=== PATIENT | female | born 1975 | race Caucasian/White ===

== ENCOUNTER 2023-03-01 03:06 | Inpatient (IN) | payer BC ==
--- NOTE | 2023-03-01 03:30 | ED Physician Documentation ---
History of Present Illness - Stated complaint Stated Complaint: FEVER/GEN WEAKNESS - Chief complaint Chief Complaint: Resp - History obtained from History obtained from: Patient - Additonal information Additional information: HPI from patient. Patient complains of symptoms that began 8 days ago with episodic cramping pain in all 4 extremities. She is not sure if these cramping pains are related to the subsequent symptoms. Approximately 3 to 4 days ago, she then developed chest congestion, increasing shortness of breath, increasing cough that is productive of discolored sputum, and generalized weakness. She says she has been having fevers to a Tmax of 103.7; she says she has had measured fever for the past week. Her last dose of antipyretic was at approximately 1 AM this morning. She denies any medical history, although she also acknowledges that she has not seen a doctor in several years. She does not use oxygen at home and has no history of similar symptoms to those that led to her presenting to the emergency department tonight. Denies nausea/vomiting. She has had mild diarrhea. She has had a COVID vaccination with a single booster. Denies recent airplane travel, denies long car trips. Review of Systems Constitutional: reports: Fever, Chills, Myalgias, Fatigue, Sweats Cardiac: denies: Chest pain / pressure, Palpitations, Pedal edema, Calf pain Respiratory: reports: Dyspnea, Cough. denies: Hemoptysis, Wheezing GI: reports: Diarrhea (Mild). denies: Abdominal Pain, Nausea, Vomiting : denies: Dysuria, Frequency Skin: reports: Reviewed and negative Musculoskeletal: reports: Reviewed and negative Neurologic: reports: Generalized weakness. denies: Focal weakness, Numbness PD PAST MEDICAL HISTORY - Past Medical History Past Medical History: No - Present Medications Home Medications: Ambulatory Orders Medication Instructions Recorded Confirmed Amberen 2 tab PO DAILY 03/01/23 Diphenhyd/Phenyleph/Acetaminop 20 ml PO HS 03/01/23 03/01/23 [Robitussin Cold-Flu Night Liq] Dm/Acetaminophen/Doxylamine [Vicks 30 ml PO Q4HR PRN 03/01/23 03/01/23 Nyquil Cold-Flu Liquid] Guaifenesin/Dextromethorphan 1 tab PO BID 03/01/23 03/01/23 [Mucinex Dm ER 600-30 mg Tablet] Guaifenesin/Dextromethorphan 20 ml PO DAILY PRN 03/01/23 03/01/23 [Robitussin Cough-Chest Dm Liq] Ibuprofen 4 tab PO Q6HR PRN 03/01/23 03/01/23 Loratadine [Claritin] 1 tab PO DAILY 03/01/23 03/01/23 Magnesium Glycinate, Mag Oxide 420 mg PO DAILY 03/01/23 03/01/23 [Magnesium Glycinate] Phenylephrine/Dm/Acetaminop/GG 30 ml PO BID PRN 03/01/23 03/01/23 [Daytime Severe Cold-Flu Liquid] S-Adenosylmethionine Sul Tosyl 1 tab PO DAILY 03/01/23 03/01/23 [Berry-E] Vit C/E/Zn/Coppr/Lutein/Zeaxan 1 tab PO DAILY 03/01/23 03/01/23 [Preservision Areds 2 Chew Tab] Vit D3/Vit K2/Calc Frutoborate 1 tab PO DAILY 03/01/23 03/01/23 [Move Free [id number]] - Allergies Allergies/Adverse Reactions: Allergies Allergy/AdvReac Type Severity Reaction Status Date / Time No Known Drug Allergies Allergy Verified 03/01/23 04:40 - Living Situation Living Situation: reports: With family Living Arrangement: reports: At home - Social History Does the pt smoke?: No Smoking Status: Former smoker (Quit approximately 10 years ago) PD ED PE NORMAL - Vitals Vital signs reviewed: Yes - General General: Alert and oriented X 3, No acute distress, Well developed/nourished - HEENT HEENT: Moist mucous membranes - Neck Neck: Supple, no meningeal sign - Cardiac Cardiac: No murmur - Respiratory Respiratory: No respiratory distress - Abdomen Abdomen: Soft, Non tender - Derm Derm: Normal color, Warm and dry - Extremities Extremities: No edema - Neuro Neuro: Alert and oriented X 3 PD ED PE EXPANDED - Cardiac Cardiac: Tachy, Regular Rhythm - Respiratory Respiratory: Right upper lobe (Markedly decreased breath sounds in the right upper lobe with inspiratory crackles) Results - Vitals Vitals: Vital Signs - 24 hr 03/01/23 03/01/23 03/01/23 10:00 12:15 13:03 Temperature 37.4 C Heart Rate 122 H 136 H 131 H Respiratory 36 H 36 H 29 H Rate Blood Pressure 112/54 L 129/62 O2 Saturation 93 92 If not protocol 2 2 : Oxygen Flow, liters/minute 03/01/23 03/01/23 03/01/23 14:00 15:31 15:35 Temperature 38.6 C H Heart Rate 135 H 137 H Respiratory 40 H 37 H Rate Blood Pressure 129/69 O2 Saturation 91 L If not protocol : Oxygen Flow, liters/minute Oxygen O2 Source Room air Oxygen Flow Rate 4 - Labs Labs: Microbiology 03/01/23 05:28 Blood Culture - Preliminary Blood - Right Hand NO GROWTH AFTER 1 DAY 03/01/23 05:21 Blood Culture - Preliminary Blood - Right Arm NO GROWTH AFTER 1 DAY Laboratory Tests 03/01/23 03/01/23 03/01/23 03:57 03:57 03:57 WBC 13.2 H RBC 3.59 L Hgb 9.9 L Hct 29.6 L MCV 82.5 MCH 27.6 MCHC 33.4 RDW 15.2 H Plt Count 235 MPV 10.2 Neut # (Auto) Not Reportable Lymph # (Auto) Not Reportable [place] # (Auto) Not Reportable Eos # (Auto) Not Reportable Baso # (Auto) Not Reportable Absolute Nucleated RBC Not Reportable Total Counted 100 Band Neuts % (Manual) 4 Abnorm Lymph % (Manual) 0 Metamyelocytes % 1 H Nucleated RBC % Not Reportable Neutrophils # (Manual) 11.6 H Lymphocytes # (Manual) 0.8 L Monocytes # (Manual) 0.7 Eosinophils # (Manual) 0.0 Basophils # (Manual) 0.0 Differential Comment MANUAL DIFFERENTIAL WBC Morphology NORMAL APPEARANCE Platelet Estimate NORMAL (130-450,000) Platelet Morphology NORMAL APPEARANCE RBC Morph Micro Appear NORMAL APPEARANCE Sodium 136 Potassium 3.4 L Chloride 105 Carbon Dioxide 19 L Anion Gap 12.0 BUN 16 Creatinine 1.0 Estimated GFR (MDRD) 59 L Glucose 126 H Lactic Acid Calcium 8.4 L Total Bilirubin 0.7 AST 33 ALT 26 Alkaline Phosphatase 108 Total Protein 7.4 Albumin 2.5 L Globulin 4.8 H Albumin/Globulin Ratio 0.5 L Lipase 22 Nasal Adenovirus (PCR) NOT DETECTED Nasal B. parapertussis DNA (PCR) NOT DETECTED Nasal Coronavir 229E PCR NOT DETECTED Nasal Coronavir HKU1 PCR NOT DETECTED Nasal Coronavir NL63 PCR NOT DETECTED Nasal Coronavir OC43 PCR NOT DETECTED Nasal Enterovir/Rhinovir PCR NOT DETECTED Nasal Influenza B PCR NOT DETECTED Nasal Influenza A PCR NOT DETECTED Nasal Parainfluen 1 PCR NOT DETECTED Nasal Parainfluen 2 PCR NOT DETECTED Nasal Parainfluen 3 PCR NOT DETECTED Nasal Parainfluen 4 PCR NOT DETECTED Nasal RSV (PCR) NOT DETECTED Nasal B.pertussis DNA PCR NOT DETECTED Nasal C.pneumoniae (PCR) NOT DETECTED Jose Human Metapneumo PCR NOT DETECTED Nasal M.pneumoniae (PCR) NOT DETECTED Nasal SARS-CoV-2 (PCR) NOT DETECTED 03/01/23 04:10 WBC RBC Hgb Hct MCV MCH MCHC RDW Plt Count MPV Neut # (Auto) Lymph # (Auto) [place] # (Auto) Eos # (Auto) Baso # (Auto) Absolute Nucleated RBC Total Counted Band Neuts % (Manual) Abnorm Lymph % (Manual) Metamyelocytes % Nucleated RBC % Neutrophils # (Manual) Lymphocytes # (Manual) Monocytes # (Manual) Eosinophils # (Manual) Basophils # (Manual) Differential Comment WBC Morphology Platelet Estimate Platelet Morphology RBC Morph Micro Appear Sodium Potassium Chloride Carbon Dioxide Anion Gap BUN Creatinine Estimated GFR (MDRD) Glucose Lactic Acid 0.8 Calcium Total Bilirubin AST ALT Alkaline Phosphatase Total Protein Albumin Globulin Albumin/Globulin Ratio Lipase Nasal Adenovirus (PCR) Nasal B. parapertussis DNA (PCR) Nasal Coronavir 229E PCR Nasal Coronavir HKU1 PCR Nasal Coronavir NL63 PCR Nasal Coronavir OC43 PCR Nasal Enterovir/Rhinovir PCR Nasal Influenza B PCR Nasal Influenza A PCR Nasal Parainfluen 1 PCR Nasal Parainfluen 2 PCR Nasal Parainfluen 3 PCR Nasal Parainfluen 4 PCR Nasal RSV (PCR) Nasal B.pertussis DNA PCR Nasal C.pneumoniae (PCR) Jose Human Metapneumo PCR Nasal M.pneumoniae (PCR) Nasal SARS-CoV-2 (PCR) - Rads (name of study) chest xray Relevant Findings:: Prelim report reviewed, EMP independent interpretation of test, See rad report PD Medical Decision Making - ED course Complexity details: reviewed results, re-evaluated patient, considered differential, d/w patient ED course: Although afebrile in the emergency department, she also had just taken an antipyretic approximately 2 hours prior to arrival. Chest x-ray demonstrates bilateral infiltrates, markedly more pronounced on the right side which correlates with the lung exam (auscultation). On the blood test, mild leukocytosis is noted as well as mildly low hemoglobin. Her lactate level is normal, and the respiratory PCR panel is negative for the viruses tested, including COVID and influenza. Patient has no pulmonary diagnoses nor does she use oxygen at home. Her pulse ox was 91% on arrival (in triage) on room air, although the ED RN did note she had dropped to 87 to 88% on room air when she was first put into the room in the ED. Her pulse ox maintained at an acceptable level with 2 L/minute NC oxygen (mostly 92 to 93%). After the chest x-ray and blood tests were resulted, the supplemental oxygen was discontinued, and her pulse ox dropped to 90% with a good pleth. She did report increasing shortness of breath without the oxygen on. ED RN then ambulated patient in the ED hallway, using a mobile pulse oximeter during this ambulation, and noted the pulse ox would drop to the range of 86 to 88% with patient reporting increasing dyspnea. As she was being brought back into the room, I also came into the room and noted a good, correlating pleth on the monitor with a pulse ox of 82%. Patient was obviously tachypneic at that point. ED RN restarted the oxygen at 2 L/min, which again improved her pulse ox to 92 to 93%, again associated with improvement in dyspnea (both visibly as well as by patient report). Patient is tachycardic for much of her ED stay, with tachycardia notably inversely proportionate to the pulse ox readings. At this point, 2 sets of blood cultures are obtained after which she is given 2 g of intravenous Rocephin and 500 mg of intravenous Zithromax for pneumonia. The plan is to admit the patient to [facility] once beds are available (at the time of this dictation, there are no beds available but anticipate bed availability later this morning). Departure - Departure Disposition: [facility] DC/Xfer Clinical Impression: Hypoxia Pneumonia Qualifiers: Pneumonia type: due to unspecified organism Laterality: bilateral Lung location: unspecified part of lung Qualified Code(s): J18.9 - Pneumonia, unspecified organism Condition: Stable Discharge Date/Time: 03/01/23 16:48
[2023-03-01 04:08] LABS: BASOPHILS % (AUTO) 0.2 %; EOSINOPHILS % (AUTO) 0.3 %; HCT - HEMATOCRIT 29.6 % (37.0-47.0); HGB - HEMOGLOBIN 9.9 g/dL (12.0-16.0); MEAN CORPUSCULAR HEMOGLOBIN 27.6 pg (27.0-31.0); MEAN CORPUSCULAR HGB CONC 33.4 g/dL (32.0-36.0); MEAN CORPUSCULAR VOLUME 82.5 fL (81.0-99.0); MEAN PLATELET VOLUME 10.2 fL (7.9-10.8); MONOCYTES % (AUTO) 2.8 %; NEUTROPHILS % (AUTO) 86.5 %; PLT - PLATELET COUNT 235 10^3/uL (130-450); RED BLOOD COUNT 3.59 10^6/uL (4.20-5.40); RED CELL DISTRIBUTION WIDTH 15.2 % (12.0-15.0); WHITE BLOOD COUNT 13.2 x10^3/uL (4.8-10.8)
[2023-03-01 04:13] LABS: ABNORMAL LYMPHS % (MANUAL) 0 %
[2023-03-01 04:21] LABS: ALBUMIN 2.5 g/dL (3.2-5.5); ALBUMIN/GLOBULIN RATIO 0.5 (1.0-2.2); BILIRUBIN,TOTAL 0.7 mg/dL (0.2-1.0); CALCIUM 8.4 mg/dL (8.5-10.3); POTASSIUM 3.4 mmol/L (3.5-5.0); TOTAL PROTEIN 7.4 g/dL (6.7-8.2)
[2023-03-01 04:25] LABS: BAND NEUTROPHILS % (MANUAL) 4 %; DIFFERENTIAL COMMENT MANUAL DIFFERENTIAL; LYMPHOCYTES # (MANUAL) 0.8 10^3/uL (1.5-3.5); LYMPHOCYTES % (MANUAL) 6 %; METAMYELOCYTES % (MANUAL) 1 %; MONOCYTES # (MANUAL) 0.7 10^3/uL (0.0-1.0); NEUTROPHILS # (MANUAL) 11.6 10^3/uL (1.5-6.6); PLATELET ESTIMATE, MANUAL NORMAL (130-450,000) (NORMAL); PLATELET MORPHOLOGY NORMAL APPEARANCE (NORMAL); RBC MORPHOLOGY (MULTIPLE) NORMAL APPEARANCE (NORMAL); WBC MORPHOLOGY (MULTIPLE) NORMAL APPEARANCE (NORMAL)
[2023-03-01] MEDS ORDERED: cefTRIAXone 2 GM VIAL IVP STA (04:57)
[2023-03-01] MEDS ORDERED: AZITHROMYCIN INJ 500 MG in SODIUM CHLORIDE 0.9% 250 ML IV STA (04:58)
[2023-03-01 05:04] LABS: B. PARAPERTUSSIS- RESP PCR PAN NOT DETECTED; B. PERTUSSIS- RESP PCR PANEL NOT DETECTED; C. PNEUMONIAE- RESP PCR PANEL NOT DETECTED; CORONAVIRUS 229E-RESP PCR NOT DETECTED; CORONAVIRUS HKU1-RESP PCR NOT DETECTED; CORONAVIRUS NL63-RESP PCR NOT DETECTED; CORONAVIRUS OC43-RESP PCR NOT DETECTED; HUMAN METAPNEUMOVIRUS NOT DETECTED; INFLUENZA A- RESP PCR PANEL NOT DETECTED; INFLUENZA B - RESP PCR PANEL NOT DETECTED; M. PNEUMONIAE- RESP PCR PANEL NOT DETECTED; PARAINFLUENZA VIRUS 1 NOT DETECTED; PARAINFLUENZA VIRUS 2 NOT DETECTED; PARAINFLUENZA VIRUS 3 NOT DETECTED; PARAINFLUENZA VIRUS 4 NOT DETECTED; RHINOVIRUS/ENTEROVIRUS NOT DETECTED; RSV- RESP PCR PANEL NOT DETECTED; SARS-CoV-2 -RESP PCR PANEL NOT DETECTED
--- NOTE | 2023-03-01 07:54 | XRAY Report ---
PROCEDURE: Chest 2 View X-Ray INDICATIONS: dyspnea, cough, fever, abnormal breath sounds TECHNIQUE: 2 views of the chest were acquired. COMPARISON: None. FINDINGS: Surgical changes and devices: None. Lungs and pleura: Bilateral airspace infiltrates consistent with pneumonia. No pleural effusions or p neumothorax. Mediastinum: Mediastinal contours appear normal. Heart size is normal. Bones and chest wall: No suspicious bony lesions. Overlying soft tissues appear unremarkable. IMPRESSION: Bilateral pneumonia. Reviewed by: Cheyenne Luna MD on 03/01/2023 7:52 AM PDT Approved by: Cheyenne Luna MD on 03/01/2023 7:52 AM PDT Station ID: [id number]
[2023-03-01] MEDS ORDERED: ALBUTEROL NEB 2.5 MG/3 ML INH STA (12:38)
[2023-03-01] MEDS ORDERED: SODIUM CHLORIDE 0.9% 500 ML IV STA (12:38)
--- NOTE | 2023-03-01 15:10 | ED Physician Documentation ---
ED Addendum - Addendum Addendum: 03/01/23 15:08 The patient has remained stable in the ER. She did start developing some increased dyspnea. I ordered a nebulizer treatent and IV fluids. Repeat antibiotics will be ordered if taking more time for admission. There are discharges today from [facility] but had not emptied the room as yet. Awaiting clear from nursing that beds are open and then I will talk with Hospitalist.
[2023-03-01] MEDS ORDERED: ACETAMINOPHEN 500 MG TABLET PO PRN (15:11)
[2023-03-01] MEDS ORDERED: SODIUM CHLORIDE FLUSH 0.9% 10 ML SYRINGE IVP PRN (16:13)
[2023-03-01] MEDS ORDERED: ONDANSETRON 4 MG/2 ML VIAL IVP PRN (16:13)
--- NOTE | 2023-03-01 16:34 | HISTORY & PHYSICAL EXAMINATION ---
Chief Complaint - Chief Complaint Chief Complaint: Dyspnea <Archana Watts - Last Filed: 03/02/23 14:53> History of Present Illness - Admitted From Admitted From:: ED - History Obtained From Records Reviewed: ED notes History obtained from: Patient, patient's daughter, ED notes <Archana Watts - Last Filed: 03/02/23 14:53> - History of Present Illness HPI Comment/Other: Per ED provider: Patient was admitted to ED for fever and generalized weakness. She was urged to go to ED by her daughter due to her fever and cough. Her symptoms began 8 days ago with episodic cramping pain in all 4 extremities. She is not sure if these cramping pains are related to the subsequent symptoms. A da y later she became febrile. Approximately 3 to 4 days ago, she then developed chest congestion, increasing shortness of breath, increasing cough that is scantily productive of orange sputum, and generalized weakness. She says she has been having fevers to a Tmax of 103.7; she says she has had measured fever for the past week. Her last dose of antipyretic was at approximately 1 AM this morning before arriving to the ED. She denies any medical history, although she also acknowledges that she has not seen a doctor in several years. She does not use oxygen at home and has no history of similar symptoms to those that led to her presenting to the emergency department tonight. Denies nausea/vomiting. She has had mild diarrhea. She has had a COVID vaccination with a single booster. Denies recent airplane travel, denies long car trips. Chest x-ray in ED demonstrated bilateral infiltrates, markedly more pronounced on the right side. On CBC, mild leukocytosis was noted as well as mildly low hemoglobin. Her lactate level was normal, and the respiratory PCR panel was negative for the viruses tested, including COVID and influenza. Patient has no pulmonary diagnoses nor does she use oxygen at home. Her pulse ox was 91% on arrival (in triage) on room air, although the ED RN did note she had dropped to 87 to 88% on room air when she was first put into the room in the ED. Her pulse ox maintained at an acceptable level with 2 L/minute NC oxygen (mostly 92 to 93%). After the chest x-ray and blood tests were resulted, the supplemental oxygen was discontinued, and her pulse ox dropped to 90% with a good pleth. She did report increasing shortness of breath without the oxygen on. ED RN then ambulated patient in the ED hallway, using a mobile pulse oximeter during this ambulation, and noted the pulse ox would drop to the range of 86 to 88% with patient reporting increasing dyspnea. As she was being brought back into the room, she had a pulse ox of 82%. Patient was tachypneic at that point. ED RN restarted the oxygen at 2 L/min, which again improved her pulse ox to 92 to 93%, again associated with improvement in dyspnea (both visibly as well as by patient report). Patient was tachycardic for much of her ED stay, with tachycardia notably inversely proportionate to the pulse ox readings. She was given 2 g of intravenous Rocephin and 500 mg of intravenous Zithromax for pneumonia. Here she is afebrile. Her daughter, who is a nurse, is present during exam and is helping provide history. Pt reports feeling better since leaving the ED. She is glad she has a more comfortable bed here, and feels that is helping her feel better much faster. She reports having slept only 3 hours since tuesday, due to her cough. She is a former smoker of 25 years who quit 10 years ago. She denies history of asthma or any cardiopulmonary conditions. Pt is in no distress, is very pleasant, and answers accordingly. She lives at home with her family and dog. 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 (Archana Watts) History - Past Medical History Cardiovascular: reports: None Respiratory: reports: None Neuro: reports: None Endocrine/Autoimmune: reports: None GI: reports: None APPLIANCE ADJUSTER: reports: None : reports: None HEENT: reports: None Psych: reports: None Musculoskeletal: reports: None Derm: reports: None Other Past Medical History: Seasonal allergies - Family & Social History Family History: Mother: Alive and Well, Renal Disease/Failure, Father: Alive and Well, [place] Family History Comment/Other: Mother's side has hypothyroidism. Living arrangement: At home Living Situation: With family <Archana Watts - Last Filed: 03/02/23 14:53> Meds/Allgy <Archana Watts - Last Filed: 03/02/23 14:53> <Yecenia Ni - Last Filed: 03/02/23 14:57> - Home Medications Home Medications: Ambulatory Orders Medication Instructions Recorded Confirmed Amberen 2 tab PO DAILY 03/01/23 Diphenhyd/Phenyleph/Acetaminop 20 ml PO HS 03/01/23 03/01/23 [Robitussin Cold-Flu Night Liq] Dm/Acetaminophen/Doxylamine [Vicks 30 ml PO Q4HR PRN 03/01/23 03/01/23 Nyquil Cold-Flu Liquid] Guaifenesin/Dextromethorphan 1 tab PO BID 03/01/23 03/01/23 [Mucinex Dm ER 600-30 mg Tablet] Guaifenesin/Dextromethorphan 20 ml PO DAILY PRN 03/01/23 03/01/23 [Robitussin Cough-Chest Dm Liq] Ibuprofen 4 tab PO Q6HR PRN 03/01/23 03/01/23 Loratadine [Claritin] 1 tab PO DAILY 03/01/23 03/01/23 Magnesium Glycinate, Mag Oxide 420 mg PO DAILY 03/01/23 03/01/23 [Magnesium Glycinate] Phenylephrine/Dm/Acetaminop/GG 30 ml PO BID PRN 03/01/23 03/01/23 [Daytime Severe Cold-Flu Liquid] S-Adenosylmethionine Sul Tosyl 1 tab PO DAILY 03/01/23 03/01/23 [Berry-E] Vit C/E/Zn/Coppr/Lutein/Zeaxan 1 tab PO DAILY 03/01/23 03/01/23 [Preservision Areds 2 Chew Tab] Vit D3/Vit K2/Calc Frutoborate 1 tab PO DAILY 03/01/23 03/01/23 [Move Free [id number]] - Allergies Allergies/Adverse Reactions: Allergies Allergy/AdvReac Type Severity Reaction Status Date / Time No Known Drug Allergies Allergy Verified 03/01/23 04:40 Review of Systems - Constitutional Constitutional: reports: Fatigue, Fever, Weakness. denies: Chills - Ears, Nose & Throat Ears, Nose & Throat: denies: Nasal discharge, Nasal congestion, Sore throat - Respiratory Respiratory: reports: Cough, Sputum production (Very small orange colored sputum), SOB with exertion. denies: Hemoptysis - Gastrointestinal Gastrointestinal: reports: Diarrhea. denies: Abdominal pain, Constipation, Nausea, Vomiting - Genitourinary Genitourinary: denies: Dysuria, Frequency, Urgency - Integumentary Integumentary: denies: Rash - Neurological Neurological: reports: General weakness, Headache. denies: Dizziness, Abnormal gait - Psychiatric Psychiatric: denies: Depression, Anxiety - Hematologic/Lymphatic Hematologic/Lymphatic: reports: Anemia <Archana Watts - Last Filed: 03/02/23 14:53> <Archana Watts - Last Filed: 03/02/23 14:53> Prior Level of Functionality: Pt ambulates independently. 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 At home, she keeps active with her puppy and grandchildren. (MacKeeArchana) Exam - Vital Signs Reviewed Vital Signs: Yes - Physical Exam General Appearance: positive: No acute distress, Alert Eyes Bilateral: positive: Normal inspection, EOMI ENT: positive: ENT inspection nml Neck: positive: Nml inspection, No JVD, Trachea midline Respiratory: positive: Chest non-tender, No respiratory distress, Other ( Diminished breath sounds bilaterally, with inspiratory crackles on midlung [place].) Cardiovascular: positive: No murmur, No gallop, Tachycardia Peripheral Pulses: positive: 1+ Abdomen: positive: Non-tender, No organomegaly, Nml bowel sounds, No distention Back: positive: Nml inspection Skin: positive: No rash, Warm, Dry Extremities: positive: Non-tender, Full ROM, No pedal edema Neurologic/Psychiatric: positive: Oriented x3, CN's nml (2-12), Motor nml, Sensation nml, Mood/affect nml <Archana Watts - Last Filed: 03/02/23 14:53> - Vital Signs Vital Signs: Vital Signs x48h Temp Pulse Pulse Resp BP Pulse Ox O2 Flow Rate 03/02/23 13:00 36.7 C 88 18 109/62 92 4 03/02/23 11:46 79 20 4 03/02/23 08:40 37.4 C 03/02/23 07:25 37.2 C 114 H 20 119/76 90 L 4 03/02/23 07:16 113 H 19 4 Sepsis Event Note (H) - Evaluation Current Stage of Sepsis: Sepsis Possible source of Sepsis: positive: Pulmonary - Sepsis Criteria Sepsis Criteria: Recorded Temperature greater than 38.3C or Less than 36C, Recorded Heart Rate greater than 90 bpm, Respiratory: Increasing oxygen requirements, WBC count greater than 12,000 or less than 4000 <Archana Watts - Last Filed: 03/02/23 14:53> Conclusion/Plan - Problem List (1) Sepsis Conclusion/Plan: The patient has been sick for 8 days, and febrile for 7 days. She was dyspneic while in the ED, with O2 sat dropping to 82%. She had a temperature of 39.2 C, heart rate of 130, increasing oxygen requirements, and a leukocytosis of 13.2. These criteria lead us to believe the patient is septic. Her lactic acid is 0.8, normal. The sepsis is likely due to CAP. PLAN: Begin IV fluids Begin IV rocephin and IV zithromax. Begin telemetry to assess tachycardia. Monitor vitals. Daily CBC. (2) Community acquired pneumonia Conclusion/Plan: The patient presented with fever, cough, and fatigue. Chest XR reveals findings consistent with bilateral PNA. She denies sick contacts or recent travels, so pt is unsure where she could have contracted this illness. Blood cultures were collected and sent to lab by ED provider. Empiric nebulizers started as there is suspicion of an underlying lung problem. PLAN: Begin IV fluids. Begin IV rocephin and IV zithromax, adjust if necessary, depending on cultures. Begin mucinex for cough. Continue tylenol PRN for fever. Collect sputum for culture. (3) Hypoxia Conclusion/Plan: Her hypoxia is very likely due to PNA. While in the ED, her 02 saturation dropped to the range of 86 to 88% with patient reporting increasing dyspnea (see nursing note by Tal Tran on 03/01/23 04:53). As she was taken back into the room, she had a pulse ox of 82% and was tachypneic. ED RN restarted the oxygen at 2 L/min, which improved her pulse ox to 92 to 93%. On admission, her O2 was 92% on 4L oxymask. Empiric nebulizers started as there is suspicion of an underlying lung problem. PLAN: Continue supplemental oxygen. Titrate when appropriate. Goal is to be > 90% saturated. Continue duoneb treatments. (4) Anemia Conclusion/Plan: Per patient history. Her hgb is 9.9, and hct 29.6. Pt does not currently have any treatment for anemia. PLAN: Assess iron and folate levels for possible etiology. Treat accordingly. Qualifiers: Anemia type: unspecified type Qualified Code(s): D64.9 - Anemia, unspecified - Lab Results Lab results reviewed: Yes Fish Bones: 03/02/23 05:16 03/02/23 05:16 - Diagnostic Imaging Results Diagnostic Imaging Results: positive: Final report reviewed <Archana Watts - Last Filed: 03/02/23 14:53> - Lab Results Fish Bones: 03/02/23 05:16 03/02/23 05:16 <Yecenia Ni - Last Filed: 03/02/23 14:57>
--- NOTE | 2023-03-01 16:51 | PHARMACY PROGRESS NOTE ---
- Best Possible Medication History Admit Date and Time: 03/01/23 1613 Processed by: Pharmacy Medication History completed: Yes Patient Interview: Completed Secondary Source(s): Prescription bottles, Other family member (daughters helped with otc products) As the person ultimately responsible for medication therapy, providers are able to order a medication from an existing home medication list in [facility] via the "Reconcile Routine" prior to Confirmation of that medication by support representative. Such practice is discouraged except when the physician, in their clinical judgment, deems that a medical need exists for a medication without regard to previous use.
[2023-03-01] MEDS ORDERED: ALBUTEROL 1 PUFF INH SCH (17:00)
[2023-03-01] MEDS ORDERED: LACTATED RINGERS 1,000 ML IV SCH (17:00)
[2023-03-01] MEDS: SODIUM CHLORIDE FLUSH 0.9% 10 ML SYRINGE IVP SCH (17:37)
[2023-03-01] MEDS: IPRATROPIUM/ALBUTEROL 3 ML NEB INH SCH (19:02)
[2023-03-01] MEDS: guaiFENesin 600 MG TABLET PO SCH (20:51)
[2023-03-01] MEDS: ACETAMINOPHEN 325 MG TABLET PO PRN (23:34)
[2023-03-02] MEDS: SODIUM CHLORIDE FLUSH 0.9% 10 ML SYRINGE IVP SCH ×3 (00:05→16:48)
[2023-03-02 05:40] LABS: BASOPHILS # (AUTO) 0.1 10^3/uL (0.0-0.1); BASOPHILS % (AUTO) 0.7 %; EOSINOPHILS % (AUTO) 0.1 %; HCT - HEMATOCRIT 29.2 % (37.0-47.0); HGB - HEMOGLOBIN 9.7 g/dL (12.0-16.0); LYMPHOCYTES # (AUTO) 1.4 10^3/uL (1.5-3.5); LYMPHOCYTES % (AUTO) 9.5 %; MEAN CORPUSCULAR HEMOGLOBIN 27.6 pg (27.0-31.0); MEAN CORPUSCULAR HGB CONC 33.2 g/dL (32.0-36.0); MEAN PLATELET VOLUME 9.9 fL (7.9-10.8); MONOCYTES # (AUTO) 0.8 10^3/uL (0.0-1.0); MONOCYTES % (AUTO) 5.5 %; NEUTROPHILS # (AUTO) 12.2 10^3/uL (1.5-6.6); NEUTROPHILS % (AUTO) 81.1 %; PLT - PLATELET COUNT 257 10^3/uL (130-450); RED BLOOD COUNT 3.52 10^6/uL (4.20-5.40); RED CELL DISTRIBUTION WIDTH 15.8 % (12.0-15.0)
[2023-03-02 05:54] LABS: CALCIUM 8.4 mg/dL (8.5-10.3); CREATININE 0.8 mg/dL (0.4-1.0); MAGNESIUM 2.6 mg/dL (1.7-2.8); POTASSIUM 3.6 mmol/L (3.5-5.0)
[2023-03-02] MEDS: IPRATROPIUM/ALBUTEROL 3 ML NEB INH SCH ×4 (07:10→18:04)
[2023-03-02] MEDS ORDERED: [UNRECOGNIZED DRUG - OTHER] PO PRN (07:42)
[2023-03-02] MEDS ORDERED: DEXTROMETHORPHAN PO PRN (07:42)
[2023-03-02] MEDS ORDERED: DOXYLAMINE PO PRN (07:42)
[2023-03-02] MEDS ORDERED: ACETAMINOPHEN PO PRN (07:42)
[2023-03-02] MEDS ORDERED: [UNRECOGNIZED DRUG - OTHER] PO SCH (07:45)
[2023-03-02] MEDS ORDERED: ACETAMINOPHEN PO SCH (07:45)
[2023-03-02] MEDS ORDERED: DIPHENHYDRAMINE PO SCH (07:45)
[2023-03-02] MEDS ORDERED: PHENYLEPHRINE PO SCH (07:45)
[2023-03-02] MEDS ORDERED: IBUPROFEN 800 MG TABLET PO PRN (08:02)
[2023-03-02] MEDS: ACETAMINOPHEN 325 MG TABLET PO PRN ×3 (08:56→21:06)
[2023-03-02] MEDS: guaiFENesin 600 MG TABLET PO SCH ×2 (08:56→21:00)
[2023-03-02] MEDS: MAGNESIUM OXIDE 400 MG TABLET PO SCH (08:56)
[2023-03-02] MEDS: cefTRIAXone 2 GM in SODIUM CHLORIDE 0.9% MINIBAG 100 ML IV SCH (08:56)
[2023-03-02] MEDS ORDERED: [UNRECOGNIZED DRUG - REMARK] PO SCH (09:00)
[2023-03-02] MEDS ORDERED: COPPER PO SCH (09:00)
[2023-03-02] MEDS ORDERED: LUTEIN PO SCH (09:00)
[2023-03-02] MEDS ORDERED: [UNRECOGNIZED DRUG - OTHER] PO SCH (09:00)
[2023-03-02] MEDS ORDERED: S ADENOSYLMETHIONINE SUL TOSYL 400 MG PO SCH (09:00)
[2023-03-02] MEDS ORDERED: ENOXAPARIN 40 MG/0.4 ML SYRINGE SUBQ SCH (09:00)
[2023-03-02] MEDS ORDERED: ZINC PO SCH (09:00)
[2023-03-02] MEDS ORDERED: ZEAXANTHIN PO SCH (09:00)
[2023-03-02] MEDS ORDERED: ASCORBIC ACID PO SCH (09:00)
[2023-03-02] MEDS ORDERED: VITAMIN E PO SCH (09:00)
[2023-03-02] MEDS: AZITHROMYCIN INJ 500 MG in SODIUM CHLORIDE 0.9% 250 ML IV SCH (10:16)
[2023-03-02] MEDS: LORATADINE 10 MG TABLET PO SCH (10:16)
--- NOTE | 2023-03-02 10:42 | PROVIDER PROGRESS NOTE ---
<Archana Watts - Last Filed: 03/02/23 15:54> Subjective - Prog Note Date Prog Note Date: 03/02/23 Prog Note Time: 11:26 - Subjective Pt reports feeling: Improved Subjective: Pt is awake, alert, and very pleasant. She feels she has improved from yesterday. She reports being able to sleep a good amount last night, and even slept sitting up in the chair. 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 I explained to pt that with CAP, there is no way of knowing 100% where she was exposed. Daughter would like to know how long the expected stay is. She denies chest pain, palpitations, abdominal pain, n/v. Current Medications - Current Medications Current Medications: Active Medications Acetaminophen (Acetaminophen 325 Mg Tablet) 650 mg PO Q4HR PRN PRN Reason: Pain 1 to 4, or Fever Last Admin: 03/02/23 08:56 Dose: 650 mg Albuterol/Ipratropium (Ipratropium/Albuterol 3 Ml Neb) 3 ml INH RTQID [facility] Last Admin: 03/02/23 07:10 Dose: 3 ml Albuterol/Ipratropium (Ipratropium/Albuterol 3 Ml Neb) 3 ml INH Q4HR PRN PRN Reason: Wheezing Guaifenesin (Guaifenesin 600 Mg Tablet) 600 mg PO BID [facility] Last Admin: 03/02/23 08:56 Dose: 600 mg Ceftriaxone Sodium 2 gm/ (Sodium Chloride) 100 mls @ 200 mls/hr IV DAILY [facility] Last Infusion: 03/02/23 10:16 Dose: Infused Azithromycin 500 mg/ Sodium (Chloride) 250 mls @ 250 mls/hr IV DAILY [facility] Stop: 03/04/23 00:01 Last Admin: 03/02/23 10:16 Dose: 250 mls/hr Ibuprofen (Ibuprofen 800 Mg Tablet) 800 mg PO TID PRN PRN Reason: Moderate Pain (Level 4-6) Loratadine (Loratadine 10 Mg Tablet) 10 mg PO DAILY [facility] Last Admin: 03/02/23 10:16 Dose: 10 mg Magnesium Oxide (Magnesium Oxide 400 Mg Tablet) 400 mg PO DAILYWM [facility] Last Admin: 03/02/23 08:56 Dose: 400 mg Ondansetron HCl (Ondansetron 4 Mg/2 Ml Vial) 4 mg IVP Q6HR PRN PRN Reason: Nausea / Vomiting Sodium Chloride (Sodium Chloride Flush 0.9% 10 Ml Syringe) 10 ml IVP PRN PRN PRN Reason: NEEDED PER PROVIDER ORDERS Sodium Chloride (Sodium Chloride Flush 0.9% 10 Ml Syringe) 10 ml IVP 0100,0900,1700 [facility] Last Admin: 03/02/23 08:57 Dose: 10 ml Amberen 2 tab PO DAILY 03/01/23 Diphenhyd/Phenyleph/Acetaminop [Robitussin Cold-Flu Night Liq] 20 ml PO HS 03/01/23 Dm/Acetaminophen/Doxylamine [Vicks Nyquil Cold-Flu Liquid] 30 ml PO Q4HR PRN 03/01/23 Guaifenesin/Dextromethorphan [Mucinex Dm ER 600-30 mg Tablet] 1 tab PO BID Guaifenesin/Dextromethorphan [Robitussin Cough-Chest Dm Liq] 20 ml PO DAILY PRN 03/01/23 Ibuprofen 4 tab PO Q6HR PRN 03/01/23 Loratadine [Claritin] 1 tab PO DAILY 03/01/23 Magnesium Glycinate, Mag Oxide [Magnesium Glycinate] 420 mg PO DAILY 03/01/23 Phenylephrine/Dm/Acetaminop/GG [Daytime Severe Cold-Flu Liquid] 30 ml PO BID PRN 03/01/23 S-Adenosylmethionine Sul Tosyl [Berry-E] 1 tab PO DAILY 03/01/23 Vit C/E/Zn/Coppr/Lutein/Zeaxan [Preservision Areds 2 Chew Tab] 1 tab PO DAILY 03/01/23 Vit D3/Vit K2/Calc Frutoborate [Move Free [id number]-[id number]] 1 tab PO DAILY 03/01/23 Objective - Vital Signs/Intake & Output Vital Signs: Vital Signs x48h Temp Pulse Pulse Resp BP Pulse Ox O2 Flow Rate 03/02/23 08:40 37.4 C 03/02/23 07:25 37.2 C 114 H 20 119/76 90 L 4 03/02/23 07:16 113 H 19 4 03/02/23 05:02 36.7 C 99 20 115/63 93 4 Intake & Output: Intake & Output 02/27/23 02/28/23 03/01/23 03/02/23 23:59 23:59 23:59 23:59 Intake Total 990 1350 Output Total 50 Balance 990 1300 - Objective General Appearance: positive: No acute distress, Alert Eyes Bilateral: positive: Normal inspection ENT: positive: ENT inspection nml Neck: positive: Nml inspection, Trachea midline. negative: Stiff neck, Swelling/bruising Respiratory: positive: Chest non-tender, No respiratory distress, Rales (Inspiratory crackles more prominent on R lung) Cardiovascular: positive: No murmur, No gallop, Tachycardia Peripheral Pulses: 2+ Radial (R), 2+ Radial (L) Abdomen: positive: Non-tender, No distention Back: positive: Nml inspection Skin: positive: Color nml, No rash, Warm Extremities: positive: Non-tender, Full ROM, Nml appearance, No pedal edema Neurologic/Psychiatric: positive: Oriented x3, CN's nml (2-12), Motor nml, Sensation nml, Mood/affect nml - Lab Results Fish Bones: 03/02/23 05:16 03/02/23 05:16 Other Labs: Lab Results x24hrs 03/02/23 03/02/23 Range/Units 05:16 05:16 WBC 15.0 H (4.8-10.8) x10^3/uL RBC 3.52 L (4.20-5.40) 10^6/uL Hgb 9.7 L (12.0-16.0) g/dL Hct 29.2 L (37.0-47.0) % MCV 83.0 (81.0-99.0) fL MCH 27.6 (27.0-31.0) pg MCHC 33.2 (32.0-36.0) g/dL RDW 15.8 H (12.0-15.0) % Plt Count 257 (130-450) 10^3/uL MPV 9.9 (7.9-10.8) fL Neut # (Auto) 12.2 H (1.5-6.6) 10^3/uL Lymph # (Auto) 1.4 L (1.5-3.5) 10^3/uL [place] # (Auto) 0.8 (0.0-1.0) 10^3/uL Eos # (Auto) 0.0 (0.0-0.7) 10^3/uL Baso # (Auto) 0.1 (0.0-0.1) 10^3/uL Absolute Nucleated RBC 0.00 x10^3/uL Nucleated RBC % 0.0 /100WBC Sodium 137 (135-145) mmol/L Potassium 3.6 (3.5-5.0) mmol/L Chloride 104 (101-111) mmol/L Carbon Dioxide 22 (21-32) mmol/L Anion Gap 11.0 (6-13) BUN 15 (6-20) mg/dL Creatinine 0.8 (0.4-1.0) mg/dL Estimated GFR (MDRD) 77 L (>89) Glucose 120 H (70-100) mg/dL Calcium 8.4 L (8.5-10.3) mg/dL Magnesium 2.6 (1.7-2.8) mg/dL ABX Reporting Has patient been on IV antibiotics over the past 48 hours?: Yes Sepsis Event Note (H) - Evaluation Current Stage of Sepsis: Sepsis Possible source of Sepsis: positive: Pulmonary - Sepsis Criteria Sepsis Criteria: Recorded Temperature greater than 38.3C or Less than 36C, Recorded Heart Rate greater than 90 bpm, Respiratory: Increasing oxygen requirements, WBC count greater than 12,000 or less than 4000 Assessment/Plan - Problem List (1) Sepsis Impression: The patient has been sick for 8 days, and febrile for 7 days. She was dyspneic while in the ED, with O2 sat dropping to 82%. She had a temperature of 39.2 C, heart rate of 130, increasing oxygen requirements, and a leukocytosis of 13.2. These criteria lead us to believe the patient is septic. Her lactic acid is 0.8, normal. The sepsis is likely due to CAP. 03/02: White count has increased to 15. She is still tachycardic. Her O2 sats overnight were 93%, and dropped to 90% around 8 am. She is afebrile today. Overall, pt reports feeling better. PLAN: Continue IV fluids Continue IV rocephin and IV zithromax. Continue telemetry to assess tachycardia. Monitor vitals. Daily CBC. (2) Community acquired pneumonia Impression: The patient presented with fever, cough, and fatigue. Chest XR reveals findings consistent with bilateral PNA. She denies sick contacts or recent travels, so pt is unsure where she could have contracted this illness. Blood cultures were collected and sent to lab by ED provider. 03/02: Blood cultures have not shown growth after 1 day. This is day 2 on abx. Pt reports increased liquid stools, likely due to abx. She states she has gone through several briefs due to her stools. She reported her cough is minimal and dry, and has not been able to provide a sputum sample. PLAN: Start loperamide for diarrhea. Continue IV fluids. Continue IV rocephin and IV zithromax, adjust if necessary, depending on cultures. Continue mucinex for cough. Continue tylenol PRN for fever. Collect sputum for culture. (3) Hypoxia Impression: Her hypoxia is very likely due to PNA. While in the ED, her 02 saturation dropped to the range of 86 to 88% with patient reporting increasing dyspnea (see nursing note by Tal Tran on 03/01/23 04:53). As she was taken back into the room, she had a pulse ox of 82% and was tachypneic. ED RN restarted the oxygen at 2 L/min, which improved her pulse ox to 92 to 93%. On admission, her O2 was 92% on 4L oxymask. 03/02: Her overnight sats were 93% on 4L NC. At 8 am, she dropped to 90% on 4L NC. She states that her dyspnea is triggered by exertion, such as getting to the bathroom. She has had 1 duoneb treatment so far, which she states really help. PLAN: Continue supplemental oxygen, and monitor for further desaturation. Titrate when appropriate. Goal is to be > 90% saturated. Continue duoneb treatments. (4) Diarrhea Impression: Pt reports liquid stools. She has gone through 7-8 brief changes today. This is likely due to abx. PLAN: Stool culture for c. diff. If negative, will start loperamide. Qualifiers: Diarrhea type: unspecified type Qualified Code(s): R19.7 - Diarrhea, unspecified (5) Hyperglycemia Impression: Blood glucose was elevated. 03/01: 126; 03/02: 120. She denies any family hx of DM. PLAN: Order HbA1c to assess for DM. (6) Hypocalcemia Impression: Pt has acute hypocalcemia. It is slightly elevated at 8.4. PLAN: Start oral calcium 1 g supplement. Consider vitamin D supplement. Monitor CMP. (7) Anemia Impression: Per patient history. Her hgb is 9.9, and hct 29.6. Pt does not currently have any treatment for anemia. 03/02: Hgb slighly decreased to 9.7; Hct slightly decreased to 29.4. She states anemia runs in her family. She denies heavy menstruation, as she currently in menopause. PLAN: Assess iron, b12 and folate levels for possible etiology. Treat accordingly. Qualifiers: Anemia type: unspecified type Qualified Code(s): D64.9 - Anemia, unspecified <Yecenia Ni - Last Filed: 03/02/23 16:00> Objective - Vital Signs/Intake & Output Vital Signs: Vital Signs x48h Temp Pulse Pulse Resp BP Pulse Ox O2 Flow Rate 03/02/23 15:24 97 19 4 03/02/23 13:00 36.7 C 88 18 109/62 92 4 03/02/23 11:46 79 20 4 03/02/23 08:40 37.4 C Intake & Output: Intake & Output 02/27/23 02/28/23 03/01/23 03/02/23 23:59 23:59 23:59 23:59 Intake Total 990 1900 Output Total 50 Balance 990 1850 - Lab Results Fish Bones: 03/02/23 05:16 03/02/23 05:16 Other Labs: Lab Results x24hrs 03/02/23 03/02/23 03/02/23 Range/Units 05:16 05:16 05:16 WBC 15.0 H (4.8-10.8) x10^3/uL RBC 3.52 L (4.20-5.40) 10^6/uL Hgb 9.7 L (12.0-16.0) g/dL Hct 29.2 L (37.0-47.0) % MCV 83.0 (81.0-99.0) fL MCH 27.6 (27.0-31.0) pg MCHC 33.2 (32.0-36.0) g/dL RDW 15.8 H (12.0-15.0) % Plt Count 257 (130-450) 10^3/uL MPV 9.9 (7.9-10.8) fL Neut # (Auto) 12.2 H (1.5-6.6) 10^3/uL Lymph # (Auto) 1.4 L (1.5-3.5) 10^3/uL [place] # (Auto) 0.8 (0.0-1.0) 10^3/uL Eos # (Auto) 0.0 (0.0-0.7) 10^3/uL Baso # (Auto) 0.1 (0.0-0.1) 10^3/uL Absolute Nucleated RBC 0.00 x10^3/uL Nucleated RBC % 0.0 /100WBC Sodium 137 (135-145) mmol/L Potassium 3.6 (3.5-5.0) mmol/L Chloride 104 (101-111) mmol/L Carbon Dioxide 22 (21-32) mmol/L Anion Gap 11.0 (6-13) BUN 15 (6-20) mg/dL Creatinine 0.8 (0.4-1.0) mg/dL Estimated GFR (MDRD) 77 L (>89) Glucose 120 H (70-100) mg/dL Estimat Average Glucose 126 H (70-100) mg/dL Hemoglobin A1c % 6.0 (4.27-6.07) % Calcium 8.4 L (8.5-10.3) mg/dL Magnesium 2.6 (1.7-2.8) mg/dL
[2023-03-02 15:26] LABS: ESTIMATED AVERAGE GLUCOSE 126 mg/dL (70-100)
[2023-03-02] MEDS: ENOXAPARIN 40 MG/0.4 ML SYRINGE SUBQ SCH (16:33)
[2023-03-02] MEDS: D5.45NS W/20 MEQ KCL 1,000 ML IV SCH (18:03)
[2023-03-02] MEDS: guaiFENesin/DEXTROMETHORPHAN 10 ML UDC PO PRN (18:03)
--- NOTE | 2023-03-02 18:30 | XRAY Report ---
PROCEDURE: Chest 1 View X-Ray INDICATIONS: Persistent cough, fever TECHNIQUE: One view of the chest was acquired. COMPARISON: 03/01/2023 FINDINGS: Surgical changes and devices: None. Lungs and pleura: Bilateral airspace infiltrates demonstrate worsening compared to the prior study o n 03/01/2023. No pleural effusion or pneumothorax. Mediastinum: Mediastinal contours appear normal. Heart size is normal. Bones and chest wall: No suspicious bony lesions. Overlying soft tissues appear unremarkable. IMPRESSION: Bilateral pulmonary edema either due to a diffuse bilateral infectious process, CHF, and/or ARDS. The appearance is worse compared to 03/01/2023. Reviewed by: Rocky Fritz on 03/02/2023 6:29 PM PDT Approved by: Rocky Fritz on 03/02/2023 6:29 PM PDT Station ID: [id number]
[2023-03-02] MEDS: LOPERAMIDE 2 MG CAPSULE PO PRN (21:00)
[2023-03-02] MEDS: FLUCONAZOLE 200 MG/100 ML 100 ML IV SCH (21:00)
[2023-03-03] MEDS: guaiFENesin/DEXTROMETHORPHAN 10 ML UDC PO PRN ×3 (00:04→16:00)
[2023-03-03] MEDS: SODIUM CHLORIDE FLUSH 0.9% 10 ML SYRINGE IVP SCH ×3 (01:07→16:43)
[2023-03-03] MEDS: ACETAMINOPHEN 325 MG TABLET PO PRN ×3 (04:27→16:42)
[2023-03-03] MEDS: IPRATROPIUM/ALBUTEROL 3 ML NEB INH PRN ×4 (04:45→21:20)
[2023-03-03 05:27] LABS: BASOPHILS % (AUTO) 0.5 %; EOSINOPHILS # (AUTO) 0.1 10^3/uL (0.0-0.7); EOSINOPHILS % (AUTO) 1.5 %; HCT - HEMATOCRIT 26.2 % (37.0-47.0); HGB - HEMOGLOBIN 8.9 g/dL (12.0-16.0); LYMPHOCYTES # (AUTO) 1.1 10^3/uL (1.5-3.5); LYMPHOCYTES % (AUTO) 12.7 %; MEAN CORPUSCULAR HEMOGLOBIN 27.6 pg (27.0-31.0); MEAN CORPUSCULAR VOLUME 81.4 fL (81.0-99.0); MEAN PLATELET VOLUME 9.5 fL (7.9-10.8); MONOCYTES # (AUTO) 0.6 10^3/uL (0.0-1.0); MONOCYTES % (AUTO) 6.4 %; NEUTROPHILS # (AUTO) 6.6 10^3/uL (1.5-6.6); NEUTROPHILS % (AUTO) 74.3 %; PLT - PLATELET COUNT 216 10^3/uL (130-450); RED BLOOD COUNT 3.22 10^6/uL (4.20-5.40); RED CELL DISTRIBUTION WIDTH 15.8 % (12.0-15.0); WHITE BLOOD COUNT 8.9 x10^3/uL (4.8-10.8)
[2023-03-03] MEDS: D5.45NS W/20 MEQ KCL 1,000 ML IV SCH ×2 (05:46→19:22)
[2023-03-03 05:49] LABS: CREATININE 0.7 mg/dL (0.4-1.0); POTASSIUM 3.2 mmol/L (3.5-5.0)
[2023-03-03 06:07] LABS: FOLATE 19.64 ng/mL (5.90 - >24.8)
--- NOTE | 2023-03-03 08:07 | PROVIDER PROGRESS NOTE ---
Subjective - Prog Note Date Prog Note Date: 03/03/23 Prog Note Time: 12:16 - Subjective Pt reports feeling: Improved Subjective: Pt reports an episode of chest pressure and dyspnea last night. At first she did not want to ask for a breathing treatment because yesterday it caused a coughing fit. Ultimately the pressure became unbearable and she asked for a duoneb treatment. She states this resolved her dyspnea and did not cause any coughing. On exam today, she was mildly out of breath as she was back in the bed after getting up to go to bathroom. She received a duoneb treatment during exam, so I returned to finish my exam afterwards. Pt's dyspnea improved after treatment. She states she feels better than yesterday, but experienced chills earlier today. She is not actively having chills during exam. She also reports produ ctive cough last night, with orange colored chunky sputum. Current Medications - Current Medications Current Medications: Active Medications Acetaminophen (Acetaminophen 325 Mg Tablet) 650 mg PO Q4HR PRN PRN Reason: Pain 1 to 4, or Fever Last Admin: 03/03/23 04:27 Dose: 650 mg Albuterol/Ipratropium (Ipratropium/Albuterol 3 Ml Neb) 3 ml INH Q4HR PRN PRN Reason: Wheezing Last Admin: 03/03/23 04:45 Dose: 3 ml Enoxaparin Sodium (Enoxaparin 40 Mg/0.4 Ml Syringe) 40 mg SUBQ DAILY [facility] Last Admin: 03/02/23 16:33 Dose: 40 mg Guaifenesin (Guaifenesin 600 Mg Tablet) 600 mg PO BID [facility] Last Admin: 03/02/23 21:00 Dose: 600 mg Guaifenesin (Guaifenesin/Dextromethorphan 10 Ml Udc) 10 ml PO Q6HR PRN PRN Reason: Cough Last Admin: 03/03/23 00:04 Dose: 10 ml Ceftriaxone Sodium 2 gm/ (Sodium Chloride) 100 mls @ 200 mls/hr IV DAILY [facility] Last Infusion: 03/02/23 10:16 Dose: Infused Azithromycin 500 mg/ Sodium (Chloride) 250 mls @ 250 mls/hr IV DAILY [facility] Stop: 03/04/23 00:01 Last Infusion: 03/02/23 12:04 Dose: Infused Potassium Chloride/Dextrose/Sod Cl (D5.45ns W/20 Meq Kcl) 1,000 mls @ 83.333 mls/hr IV .Q12H [facility] Last Admin: 03/03/23 05:46 Dose: 83.333 mls/hr Fluconazole (Diflucan 200 Mg/100 Ml) 100 mls @ 100 mls/hr IV DAILY [facility] Last Infusion: 03/02/23 22:00 Dose: Infused Ibuprofen (Ibuprofen 800 Mg Tablet) 800 mg PO TID PRN PRN Reason: Moderate Pain (Level 4-6) Loperamide HCl (Loperamide 2 Mg Capsule) 2 mg PO QID PRN PRN Reason: Diarrhea Last Admin: 03/02/23 21:00 Dose: 2 mg Loratadine (Loratadine 10 Mg Tablet) 10 mg PO DAILY [facility] Last Admin: 03/02/23 10:16 Dose: 10 mg Magnesium Oxide (Magnesium Oxide 400 Mg Tablet) 400 mg PO DAILYWM [facility] Last Admin: 03/02/23 08:56 Dose: 400 mg Ondansetron HCl (Ondansetron 4 Mg/2 Ml Vial) 4 mg IVP Q6HR PRN PRN Reason: Nausea / Vomiting Sodium Chloride (Sodium Chloride Flush 0.9% 10 Ml Syringe) 10 ml IVP PRN PRN PRN Reason: NEEDED PER PROVIDER ORDERS Sodium Chloride (Sodium Chloride Flush 0.9% 10 Ml Syringe) 10 ml IVP 0100,0900,1700 [facility] Last Admin: 03/03/23 01:07 Dose: Not Given Amberen 2 tab PO DAILY 03/01/23 Diphenhyd/Phenyleph/Acetaminop [Robitussin Cold-Flu Night Liq] 20 ml PO HS 03/01/23 Dm/Acetaminophen/Doxylamine [Vicks Nyquil Cold-Flu Liquid] 30 ml PO Q4HR PRN 03/01/23 Guaifenesin/Dextromethorphan [Mucinex Dm ER 600-30 mg Tablet] 1 tab PO BID 03/01/23 Guaifenesin/Dextromethorphan [Robitussin Cough-Chest Dm Liq] 20 ml PO DAILY PRN 03/01/23 Ibuprofen 4 tab PO Q6HR PRN 03/01/23 Loratadine [Claritin] 1 tab PO DAILY 03/01/23 Magnesium Glycinate, Mag Oxide [Magnesium Glycinate] 420 mg PO DAILY 03/01/23 Phenylephrine/Dm/Acetaminop/GG [Daytime Severe Cold-Flu Liquid] 30 ml PO BID PRN 03/01/23 S-Adenosylmethionine Sul Tosyl [Berry-E] 1 tab PO DAILY 03/01/23 Vit C/E/Zn/Coppr/Lutein/Zeaxan [Preservision Areds 2 Chew Tab] 1 tab PO DAILY 03/01/23 Vit D3/Vit K2/Calc Frutoborate [Move Free [id number]] 1 tab PO DAILY 03/01/23 Objective - Vital Signs/Intake & Output Reviewed Vital Signs: Yes Vital Signs: Vital Signs x48h Temp Pulse Pulse Resp BP Pulse Ox O2 Flow Rate 03/03/23 05:32 37.4 C 03/03/23 04:45 94 20 4 03/03/23 04:33 38.6 C H 107 H 18 135/79 H 95 4 03/03/23 00:07 36.8 C 100 18 116/68 93 4 Intake & Output: Intake & Output 02/28/23 03/01/23 03/02/23 03/03/23 23:59 23:59 23:59 23:59 Intake Total 990 2763.887 612.498 Output Total 50 Balance 990 2713.887 612.498 - Objective General Appearance: positive: No acute distress (Prior to duoneb treatment during mid exam, pt was in mild distress that was resolved.), Alert Eyes Bilateral: positive: Normal inspection, EOMI ENT: positive: ENT inspection nml Neck: positive: Nml inspection, No JVD, Trachea midline. negative: Lymphadenopathy (R), Lymphadenopathy (L), Stiff neck Respiratory: positive: Chest non-tender, No respiratory distress (Prior to duoneb treatment during mid exam, pt was in mild distress that was resolved.) Cardiovascular: positive: No murmur, No gallop, Tachycardia Abdomen: positive: Non-tender, No organomegaly, No distention Skin: positive: No rash - Lab Results Fish Bones: 03/03/23 05:23 03/03/23 05:23 Other Labs: Lab Results x24hrs 03/03/23 03/03/23 03/03/23 Range/Units 05:23 05:23 05:23 WBC 8.9 (4.8-10.8) x10^3/uL RBC 3.22 L (4.20-5.40) 10^6/uL Hgb 8.9 L (12.0-16.0) g/dL Hct 26.2 L (37.0-47.0) % MCV 81.4 (81.0-99.0) fL MCH 27.6 (27.0-31.0) pg MCHC 34.0 (32.0-36.0) g/dL RDW 15.8 H (12.0-15.0) % Plt Count 216 (130-450) 10^3/uL MPV 9.5 (7.9-10.8) fL Neut # (Auto) 6.6 (1.5-6.6) 10^3/uL Lymph # (Auto) 1.1 L (1.5-3.5) 10^3/uL [place] # (Auto) 0.6 (0.0-1.0) 10^3/uL Eos # (Auto) 0.1 (0.0-0.7) 10^3/uL Baso # (Auto) 0.0 (0.0-0.1) 10^3/uL Absolute Nucleated RBC 0.00 x10^3/uL Nucleated RBC % 0.0 /100WBC Sodium 134 L (135-145) mmol/L Potassium 3.2 L (3.5-5.0) mmol/L Chloride 104 (101-111) mmol/L Carbon Dioxide 22 (21-32) mmol/L Anion Gap 8.0 (6-13) BUN 11 (6-20) mg/dL Creatinine 0.7 (0.4-1.0) mg/dL Estimated GFR (MDRD) 89 (>89) Glucose 126 H (70-100) mg/dL Estimat Average Glucose (70-100) mg/dL Hemoglobin A1c % (4.27-6.07) % Calcium 8.0 L (8.5-10.3) mg/dL Iron 22 L (28-170) ug/dL TIBC 197 L (250-450) ug/dL % Saturation 11 L (20-50) % Transferrin 141 L (192-382) mg/dL Vitamin B12 3322 H (180-914) pg/mL Folate 19.64 (5.90 - >24.8) ng/mL Nasal Screen MRSA (PCR) (NEGATIVE) Stl C. diff Tox B Gene (NEGATIVE) 03/02/23 03/02/23 03/02/23 Range/Units 19:00 14:00 05:16 WBC (4.8-10.8) x10^3/uL RBC (4.20-5.40) 10^6/uL Hgb (12.0-16.0) g/dL Hct (37.0-47.0) % MCV (81.0-99.0) fL MCH (27.0-31.0) pg MCHC (32.0-36.0) g/dL RDW (12.0-15.0) % Plt Count (130-450) 10^3/uL MPV (7.9-10.8) fL Neut # (Auto) (1.5-6.6) 10^3/uL Lymph # (Auto) (1.5-3.5) 10^3/uL [place] # (Auto) (0.0-1.0) 10^3/uL Eos # (Auto) (0.0-0.7) 10^3/uL Baso # (Auto) (0.0-0.1) 10^3/uL Absolute Nucleated RBC x10^3/uL Nucleated RBC % /100WBC Sodium (135-145) mmol/L Potassium (3.5-5.0) mmol/L Chloride (101-111) mmol/L Carbon Dioxide (21-32) mmol/L Anion Gap (6-13) BUN (6-20) mg/dL Creatinine (0.4-1.0) mg/dL Estimated GFR (MDRD) (>89) Glucose (70-100) mg/dL Estimat Average Glucose 126 H (70-100) mg/dL Hemoglobin A1c % 6.0 (4.27-6.07) % Calcium (8.5-10.3) mg/dL Iron (28-170) ug/dL TIBC (250-450) ug/dL % Saturation (20-50) % Transferrin (192-382) mg/dL Vitamin B12 (180-914) pg/mL Folate (5.90 - >24.8) ng/mL Nasal Screen MRSA (PCR) NEGATIVE (NEGATIVE) Stl C. diff Tox B Gene NEGATIVE (NEGATIVE) - Diagnostic Imaging Diagnostic Imaging Results: positive: Prelim report reviewed ABX Reporting Has patient been on IV antibiotics over the past 48 hours?: Yes Sepsis Event Note (H) - Evaluation Current Stage of Sepsis: Sepsis Possible source of Sepsis: positive: Pulmonary - Sepsis Criteria Sepsis Criteria: Recorded Temperature greater than 38.3C or Less than 36C, Recorded Heart Rate greater than 90 bpm, Respiratory: Increasing oxygen requirements, WBC count greater than 12,000 or less than 4000 Assessment/Plan - Problem List (1) Sepsis Impression: The patient has been sick for 8 days, and febrile for 7 days. She was dyspneic while in the ED, with O2 sat dropping to 82%. She had a temperature of 39.2 C, heart rate of 130, increasing oxygen requirements, and a leukocytosis of 13.2. These criteria lead us to believe the patient is septic. Her lactic acid is 0.8, normal. The sepsis is likely due to CAP. 03/02: White count has increased to 15. She is still tachycardic. Her O2 sats overnight were 93%, and dropped to 90% around 8 am. She is afebrile today. Overall, pt reports feeling better. 03/03: White count has decreased to 8.9, normal range. She has had 2 sporadic fevers since yesterday. She has intermittent tachycardia. O2 is stable on 4L NC. Her lips showed signs of dehydration yesterday, so IV fluids were started. PLAN: Continue IV D5 Continue IV rocephin and IV zithromax. Continue telemetry to assess tachycardia. Monitor vitals. Daily CBC. (2) Community acquired pneumonia Impression: The patient presented with fever, cough, and fatigue. Chest XR reveals findings consistent with bilateral PNA. She denies sick contacts or recent travels, so pt is unsure where she could have contracted this illness. Blood cultures were collected and sent to lab by ED provider. 03/02: Blood cultures have not shown growth after 1 day. This is day 2 on abx. Pt reports increased liquid stools, likely due to abx. She states she has gone through several briefs due to her stools. She reported her cough is minimal and dry, and has not been able to provide a sputum sample. 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 We began to think this could possibly be a mold infection from the remodeling. Started pt on IV fluconazole for fungal coverage. Today she reports no new side effects, except a bad taste in mouth after starting the fluconazole. She spiked a fever yesterday, so a repeat CXR was ordered. Report revealed "bilateral pulmonary edema either due to bilateral infectious process, CHF, and/or ARDS. Appearance is worse compared to 03/01/23." The edema is likely from the IV fluids. MRSA nose swab was negative. Pt provided a sputum sample, and the preliminary report shows gram + cocci. Blood cultures still have no growth. PLAN: Continue IV fluconazole. Continue IV rocephin and IV zithromax. Continue mucinex for cough. Continue tylenol PRN for fever. (3) Hypoxia Impression: Her hypoxia is very likely due to PNA. While in the ED, her 02 saturation dropped to the range of 86 to 88% with patient reporting increasing dyspnea (see nursing note by Tal Tran on 03/01/23 04:53). As she was taken back into the room, she had a pulse ox of 82% and was tachypneic. ED RN restarted the oxygen at 2 L/min, which improved her pulse ox to 92 to 93%. On admission, her O2 was 92% on 4L oxymask. 03/02: Her overnight sats were 93% on 4L NC. At 8 am, she dropped to 90% on 4L NC. She states that her dyspnea is triggered by exertion, such as getting to the bathroom. She has had 1 duoneb treatment so far, which she states really help. 03/03: Pt had a coughing fit yesterday after her duoneb treatment. She requested to hold off the treatments until she felt better. Today she requested a duoneb treatment after feeling short of breath after getting up for the bathroom. She reported feeling better afterwards. She also looked visibly well. Her O2 has been stable, with her last recorded reading being 93% on 4L NC. PLAN: Stop scheduled duoneb treatments, and make PRN. Continue supplemental oxygen, and monitor for further desaturation. Titrate when appropriate. Goal is to be > 90% saturated. (4) Diarrhea Impression: Pt reports liquid stools. She has gone through 7-8 brief changes today. This is likely due to abx. 03/03: Culture was C. diff negative. She reports slight improvement in stools, not as liquid as before. PLAN: Start loperamide PRN. Start probiotic. Qualifiers: Diarrhea type: unspecified type Qualified Code(s): R19.7 - Diarrhea, unspecified (5) Hyperglycemia Impression: Blood glucose was elevated. 03/01: 126; 03/02: 120. She denies any family hx of DM. 03/03: Glucose this morning was 126. Her HbA1c was 6.0, placing her in a prediabetes stage. The PNA is likely causing her elevated glucose. PLAN: Monitor glucose daily. [employer] pt on lifestyle modification to prevent DM. (6) Anemia Impression: Per patient history. Her hgb is 9.9, and hct 29.6. Pt does not currently have any treatment for anemia. 03/02: Hgb slighly decreased to 9.7; Hct slightly decreased to 29.4. She states anemia runs in her family. She denies heavy menstruation, as she currently in menopause. 03/03: Her iron panel was low, meaning she is iron deficient. Folate was normal. B12 was very high, as she forgot to mention she takes b12 supplements. She was advised to discontinue this supplement. The iron deficiency could be due to bleeding, diet, or hereditary, since she states the women in her family have anemia. PLAN: Start iron supplement. Order guaiac testing to rule out GI bleeding as source of deficiency. Qualifiers: Anemia type: iron deficiency Iron deficiency anemia type: unspecified iron deficiency Qualified Code(s): D50.9 - Iron deficiency anemia, unspecified (7) Seasonal allergies Impression: Pt reports having seasonal allergies. She requested claritin. PLAN: Start daily claritin.
[2023-03-03] MEDS: AZITHROMYCIN INJ 500 MG in SODIUM CHLORIDE 0.9% 250 ML IV SCH (09:54)
[2023-03-03] MEDS: FLUCONAZOLE 200 MG/100 ML 100 ML IV SCH (09:54)
[2023-03-03] MEDS: cefTRIAXone 2 GM in SODIUM CHLORIDE 0.9% MINIBAG 100 ML IV SCH ×2 (09:54→10:44)
[2023-03-03] MEDS: MAGNESIUM OXIDE 400 MG TABLET PO SCH (10:43)
[2023-03-03] MEDS: LACTOBACILLUS RHAMNOSUS GG CAPSULE PO SCH (10:44)
[2023-03-03] MEDS: ENOXAPARIN 40 MG/0.4 ML SYRINGE SUBQ SCH (10:44)
[2023-03-03] MEDS: guaiFENesin 600 MG TABLET PO SCH ×2 (10:44→20:32)
[2023-03-03] MEDS: FERROUS GLUCONATE 324 MG TABLET PO SCH (10:50)
[2023-03-03] MEDS: LORATADINE 10 MG TABLET PO SCH (10:50)
[2023-03-03] MEDS: LOPERAMIDE 2 MG CAPSULE PO PRN (16:44)
[2023-03-03] MEDS ORDERED: LEVALBUTEROL 1.25 MG/3 ML NEB INH ONE (21:25)
[2023-03-04] MEDS: guaiFENesin/DEXTROMETHORPHAN 10 ML UDC PO PRN ×3 (00:48→18:12)
[2023-03-04] MEDS: SODIUM CHLORIDE FLUSH 0.9% 10 ML SYRINGE IVP SCH ×3 (00:53→18:23)
[2023-03-04] MEDS: IPRATROPIUM/ALBUTEROL 3 ML NEB INH PRN ×3 (03:45→20:37)
[2023-03-04] MEDS: ACETAMINOPHEN 325 MG TABLET PO PRN ×4 (06:15→20:20)
[2023-03-04] MEDS: D5.45NS W/20 MEQ KCL 1,000 ML IV SCH ×2 (07:00→21:06)
[2023-03-04 07:40] LABS: CALCIUM 7.9 mg/dL (8.5-10.3); CREATININE 0.6 mg/dL (0.4-1.0); POTASSIUM 3.4 mmol/L (3.5-5.0)
[2023-03-04 07:58] LABS: BASOPHILS % (AUTO) 0.8 %; EOSINOPHILS % (AUTO) 2.1 %; HCT - HEMATOCRIT 26.2 % (37.0-47.0); HGB - HEMOGLOBIN 8.9 g/dL (12.0-16.0); LYMPHOCYTES % (AUTO) 13.9 %; MEAN CORPUSCULAR HEMOGLOBIN 27.6 pg (27.0-31.0); MEAN CORPUSCULAR VOLUME 81.1 fL (81.0-99.0); MEAN PLATELET VOLUME 10.3 fL (7.9-10.8); MONOCYTES % (AUTO) 7.4 %; NEUTROPHILS % (AUTO) 68.9 %; PLT - PLATELET COUNT 264 10^3/uL (130-450); RED BLOOD COUNT 3.23 10^6/uL (4.20-5.40); RED CELL DISTRIBUTION WIDTH 15.6 % (12.0-15.0)
[2023-03-04 08:02] LABS: ABNORMAL LYMPHS % (MANUAL) 0 %
[2023-03-04] MEDS: MAGNESIUM OXIDE 400 MG TABLET PO SCH (08:06)
[2023-03-04] MEDS: cefTRIAXone 2 GM in SODIUM CHLORIDE 0.9% MINIBAG 100 ML IV SCH (08:06)
[2023-03-04] MEDS: LACTOBACILLUS RHAMNOSUS GG CAPSULE PO SCH (08:07)
[2023-03-04] MEDS: LORATADINE 10 MG TABLET PO SCH (08:07)
[2023-03-04] MEDS: guaiFENesin 600 MG TABLET PO SCH ×2 (08:07→20:25)
[2023-03-04] MEDS: FERROUS GLUCONATE 324 MG TABLET PO SCH (08:07)
[2023-03-04] MEDS: ENOXAPARIN 40 MG/0.4 ML SYRINGE SUBQ SCH (08:08)
[2023-03-04 08:30] LABS: BAND NEUTROPHILS % (MANUAL) 4 %; BASOPHILS # (MANUAL) 0.1 10^3/uL (0-0.1); BASOPHILS % (MANUAL) 1 %; LYMPHOCYTES # (MANUAL) 1.1 10^3/uL (1.5-3.5); LYMPHOCYTES % (MANUAL) 14 %; MONOCYTES # (MANUAL) 0.7 10^3/uL (0.0-1.0); NEUTROPHILS # (MANUAL) 6.1 10^3/uL (1.5-6.6); NUCLEATED RBC (MANUAL) 1 %
[2023-03-04 08:32] LABS: DIFFERENTIAL COMMENT MANUAL DIFFERENTIAL; PLATELET ESTIMATE, MANUAL NORMAL (130-450,000) (NORMAL); PLATELET MORPHOLOGY NORMAL APPEARANCE (NORMAL)
--- NOTE | 2023-03-04 08:51 | CONSULTATION NOTE ---
Surgery Consult - Admit Date Hospital Admission Date: 03/01/23 - Consult Date Consult Date: 03/04/23 Requesting Provider: Yecenia Colon - Chief Complaint Chief Complaint: Iron deficiency anemia - Home Meds/Allergies Home Medications: Patient History Medication Instructions Recorded Confirmed Amberen 2 tab PO DAILY 03/01/23 Diphenhyd/Phenyleph/Acetaminop 20 ml PO HS 03/01/23 03/01/23 [Robitussin Cold-Flu Night Liq] Dm/Acetaminophen/Doxylamine [Vicks 30 ml PO Q4HR PRN 03/01/23 03/01/23 Nyquil Cold-Flu Liquid] Guaifenesin/Dextromethorphan 1 tab PO BID 03/01/23 03/01/23 [Mucinex Dm ER 600-30 mg Tablet] Guaifenesin/Dextromethorphan 20 ml PO DAILY PRN 03/01/23 03/01/23 [Robitussin Cough-Chest Dm Liq] Ibuprofen 4 tab PO Q6HR PRN 03/01/23 03/01/23 Loratadine [Claritin] 1 tab PO DAILY 03/01/23 03/01/23 Magnesium Glycinate, Mag Oxide 420 mg PO DAILY 03/01/23 03/01/23 [Magnesium Glycinate] Phenylephrine/Dm/Acetaminop/GG 30 ml PO BID PRN 03/01/23 03/01/23 [Daytime Severe Cold-Flu Liquid] S-Adenosylmethionine Sul Tosyl 1 tab PO DAILY 03/01/23 03/01/23 [Berry-E] Vit C/E/Zn/Coppr/Lutein/Zeaxan 1 tab PO DAILY 03/01/23 03/01/23 [Preservision Areds 2 Chew Tab] Vit D3/Vit K2/Calc Frutoborate 1 tab PO DAILY 03/01/23 03/01/23 [Move Free [id number]] Allergies/Adverse Reactions: Allergies Allergy/AdvReac Type Severity Reaction Status Date / Time No Known Drug Allergies Allergy Verified 03/01/23 04:40 - Vital Signs Vital Signs: Last Vital Signs Temp 98.2 F 03/04/23 08:04 Pulse 90 03/04/23 08:04 Resp 18 03/04/23 08:04 BP 113/65 03/04/23 08:04 Pulse Ox 94 03/04/23 08:04 O2 Flow Rate 3 03/04/23 08:04 Intake & Output: Intake & Output 03/01/23 03/02/23 03/03/23 03/04/23 23:59 23:59 23:59 23:59 Intake Total 990 2763.887 2911.108 1095.83 Output Total 50 Balance 990 2713.887 2911.108 1095.83 - Lab Results Result Diagrams: 03/04/23 07:19 03/04/23 07:19 - Consultation Note Consultation Note: Assessment: 1) Iron deficiency anemia with guaiac + stools Recommendation: 1) EGD today Consent: Sondra has been counseled for the procedure, it's indications, risks, benefits and expected outcome as well as alternative therapies. We specifically discussed risks associated with anesthesia, bleeding, infection, injury to surrounding structures which may require additional surgery. I recommend that the patient proceed with the procedure. Sondra understands, agrees, and consents to the proposed operative strategy and requests that we proceed with the procedure as outlined in our discussion. <><><><><><><><><><> Reason for Consultation Request for EGD for iron deficiency anemia and guaiac positive stools HPI Sondra was admitted for treatment of pneumonia and during her evaluation she was found to have a chronic, undiagnosed anemia with iron deficiency and guaiac + stools. She denies rectal or vaginal bleeding, hematemesis, or abdominal pain. She is sometimes bothered with difficulty swallowing. She has never had an EGD in the past ROS Pertinent positives None All other reviewed systems negative Physical Examination GENERAL APPEARANCE: Normal development, normal body habitus, normal grooming PSYCHIATRIC: AAO; Comfortable EYES: Pupils equal, round and reactive to light, sclera anicteric EARS, NOSE, MOUTH, THROAT: Hearing normal, Oral mucous membranes moist and without lesions; Teeth in good repair NECK: No crepitus, lymphadenopathy, or thyromegaly LUNGS: Clear to auscultation without wheezing; No use of accessory muscles to breathe CARDIOVASCULAR: Heart-NSR without murmurs; Palpable carotid arteries - no bruits; Aorta, Femoral, Pedal pulses palpable; Peripheral edema [] ABD: Soft, non distended, non tender LYMPHATIC: Neck, Axillae, Groin [] palpable adenopathy EXTREMITIES: No clubbing, cyanosis, infections SKIN: Anicteric; No rashes, lesions, Ulcerations Homar Mullen MD, [facility] General Surgery [phone]
[2023-03-04] MEDS: FLUCONAZOLE 200 MG/100 ML 100 ML IV SCH (09:38)
--- NOTE | 2023-03-04 10:07 | CONSULTATION NOTE ---
Consultation Report: Consult for 47 yo female admitted with dx bilat pnemonia requiring O2 and later diagnosed with chronic iron deficiency anemia. Plan was for EGD this AM. Assessment included decreased lung sounds, B lower lung [place]. Crackles at base L>R. Pt unable to take deep breath without mild discomfort but improved from 03/03. Pt states breathing is "much better since admit" but she is still SOB. 03/02 cxr showed worsening pulmonary edema from fluid bolus, no new imaging. Pt now able to recline lower than 45 degrees without feeling of SOB but still requiring 02 at 3L to maintain sat 90%, hovering between 89-91 on assessment. Recommend delaying EGD until lung capacity and function has returned (clear LS, no 02). If patient condition worsens or evidence of acute upper GI bleed, we are available to take patient for procedure emergent. Spoke with MD Paz and Dr. Wyatt about current plan.
[2023-03-04] MEDS ORDERED: POTASSIUM BICARB 25 MEQ TABLET PO ONE (10:12)
--- NOTE | 2023-03-04 10:30 | PROVIDER PROGRESS NOTE ---
Progress Note General Surgery Progress Note I discussed the case with our anesthesia staff and as the anemia is chronic and without hemodynamic instability, I agree with the decision to postpone endoscopic evaluation until her respiratory status improves. Jonny Mullen MD General Surgery Service
--- NOTE | 2023-03-04 10:37 | PROVIDER PROGRESS NOTE ---
Assessment/Plan - Problem List (1) Community acquired pneumonia Assessment/Plan: The patient presented with 1 week of fever, cough, and fatigue. Chest XR findings showed bilateral PNA. She denied sick contacts or recent travels, so pt and we were unsure where she could have contracted this infection. She was started on IV Zithromax and IV ceftriaxone. 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 We added IV fluconazole for fungal coverage. At her last fever spike, she had a repeat CXR which revealed "bilateral pulmonary edema either due to bilateral infectious process, CHF, and/or ARDS. Appearance is worse compared to 03/01/23." The edema is likely from getting IV fluids. Her MRSA nose swab was negative. Pt finally provided a sputum sample, and the preliminary report shows gram + cocci. Blood cultures still have no growth. PLAN: Continue IV fluconazole, IV rocephin and she has completed a course of IV zithromax. Continue mucinex for cough. She feels better after DuoNebs therefore these will be continued as needed (2) Hypoxia Impression: Her hypoxia is very likely due to PNA. While in the ED, her 02 saturation dropped to the range of 86 to 88% with patient reporting increasing dyspnea (see nursing note by Tal Tran on 03/01/23 04:53. As she was taken back into the room, she had a pulse ox of 82% and was tachypneic). On admission, her O2 was 92% on 4L oxymask. PLAN: Cont prn duoneb treatments Continue supplemental oxygen, target is to be > 90% O2 saturated. (3) Iron deficiency Anemia Impression: Her hgb was 9.9at adm. She denied heavy menstruation,since she is in menopause. She denied melena or hematochezia. There is been no hematemesis. She denies a history of peptic ulcer disease but does describe some symptoms of GERD and also says that "oranges give her diarrhea" Her iron panel was low, meaning she is iron deficient. Folate was normal. B12 was very high, as she forgot to mention she takes b12 supplements. She was advised to discontinue this supplement. The iron deficiency could be due to bleeding, diet, or hereditary, since she states the women in her family all have anemia. Her guaic test returned (+) PLAN: Cont iron supplement. Today I ordered a general surgery consult for an EGD and I spoke to Dr. Mullen who saw her in consult and agreed she needs an EGD. Then she was seen by Anesthesia for conscious sedation and I spoke to [place] Kim, who felt she was too high risk because of her hypoxia. Therefore she will not have an EGD today, she may eat, we will treat her empirically for gastritis, as recommended by consultants. I will stop giving Lovenox because of the heme positive stool. We will change her DVT prophylaxis to SCDs. Two days ago the daughter told me that "using SCDs will be a trip hazard" for this pt, since her Mom gets up independently. Therefore I will order Up with assistance. Qualifiers: Anemia type: iron deficiency Iron deficiency anemia type: unspecified iron deficiency Qualified Code(s): D50.9 - Iron deficiency anemia, unspecified (4) Diarrhea Impression: On 03/02 pt reported 8 liquid stools/day. Her stool was C. diff negative. Imodium prn was started. She reports slight improvement in stools, not as liquid as before. PLAN: Cont Loperamide PRN. Cont probiotic, started on 03/03. Qualifiers: Diarrhea type: unspecified type Qualified Code(s): R19.7 - Diarrhea, unspecified (5) Seasonal allergies Impression: Pt reports having seasonal allergies. She requested her Claritin. PLAN: I resumed her home Claritin. (6) Hyperglycemia Impression: Blood glucose was elevated. 03/01: 126; 03/02: 120. She denies any family hx of DM. 03/03: Glucose was 126. Her HbA1c came back at 6.0, placing her in a prediabetes stage. The PNA infection is likely causing her elevated glucose. PLAN: Monitor glucose in daily BMP. [employer] pt on lifestyle modification to prevent DM. (7) Sepsis Impression: RESOLVED The patient has been sick for 8 days, and febrile for 7 days. She was dyspneic while in the ED, with O2 sat dropping to 82%. She had a temperature of 39.2 C, heart rate of 130, increasing oxygen requirements, and a leukocytosis of 13.2. Her lactic acid is 0.8, normal. The sepsis was due to CAP. Plan: Continue treating the pneumonia as above - Current Meds Current Meds: Current Medications Generic Name Dose Route Start Last Admin Trade Name Freq PRN Reason Stop Dose Admin Acetaminophen 650 mg 03/01/23 16:13 03/04/23 08:19 Acetaminophen 325 Mg Tablet PO 650 mg Q4HR PRN Administration Pain 1 to 4, or Fever Albuterol/Ipratropium 3 ml 03/01/23 16:15 03/04/23 03:45 Ipratropium/Albuterol 3 Ml Neb INH 3 ml Q4HR PRN Administration Wheezing Ferrous Gluconate 324 mg 03/03/23 09:00 03/04/23 08:07 Ferrous Gluconate 324 Mg Tablet PO 324 mg DAILYWM DILLON Administration Guaifenesin 600 mg 03/01/23 21:00 03/04/23 08:07 Guaifenesin 600 Mg Tablet PO 600 mg BID DILLON Administration Guaifenesin 10 ml 03/02/23 17:19 03/04/23 08:19 Guaifenesin/Dextromethorphan 10 Ml Udc PO 10 ml Q6HR PRN Administration Cough Ceftriaxone Sodium 2 gm/ 100 mls @ 200 mls/hr 03/02/23 09:00 03/04/23 08:45 Sodium Chloride IV Infused DAILY DILLON Infusion Potassium Chloride/Dextrose/Sod Cl 1,000 mls @ 83.333 mls/hr 03/02/23 18:00 03/04/23 07:00 D5.45ns W/20 Meq Kcl IV 83.333 mls/hr .Q12H DILLON Administration Fluconazole 100 mls @ 100 mls/hr 03/02/23 18:40 03/04/23 09:38 Diflucan 200 Mg/100 Ml IV 100 mls/hr DAILY DILLON Administration Lactobacillus Rhamnosus 1 cap 03/03/23 09:00 03/04/23 08:07 Lactobacillus Rhamnosus Gg Capsule PO 1 cap DAILY DILLON Administration Loperamide HCl 2 mg 03/02/23 18:41 03/03/23 16:44 Loperamide 2 Mg Capsule PO 2 mg QID PRN Administration Diarrhea Loratadine 10 mg 03/02/23 09:00 03/04/23 08:07 Loratadine 10 Mg Tablet PO 10 mg DAILY DILLON Administration Magnesium Oxide 400 mg 03/02/23 08:00 03/04/23 08:06 Magnesium Oxide 400 Mg Tablet PO 400 mg DAILYWM DILLON Administration Sodium Chloride 10 ml 03/01/23 17:00 03/04/23 08:08 Sodium Chloride Flush 0.9% 10 Ml Syringe IVP 10 ml [id number],[id number],1700 [facility] Administration - Lab Result Fish Bone Diagrams: 03/05/23 04:51 03/05/23 04:51 - Additional Planning My Orders: My Active Orders 03/04/23 Consult [General Surgery Consult] [CONS] Routine 03/04/23 08:00 DIET [NPO] [DIET] 03/04/23 08:57 Chest [CPT - Chest Physical Therapy] [RC] TID 03/04/23 10:10 Shower [RC] ONCE 03/04/23 10:11 SCDs [] QSHIFT 03/04/23 10:13 Pantoprazole [Protonix] 40 mg PO BID 03/04/23 Lunch DIET [Dysphagia - Minced and Moist] [DIET] Subjective - Subjective Patient Reports: Shortness of Breath (Still short of breath, still short of breath with activity, still needs supplemental O2) Objective Vital Signs: Vital Signs - 24 hr 03/03/23 03/03/23 03/03/23 12:00 13:00 15:49 Temperature 36.6 C Heart Rate 110 H 93 Heart Rate [ Brachial] Heart Rate [ 89 Monitoring electrodes] Respiratory 22 22 24 Rate Blood Pressure 124/65 [Right Brachial artery] O2 Saturation 92 If not protocol 3 3 : Oxygen Flow, liters/minute 03/03/23 03/03/23 03/03/23 16:00 21:00 21:25 Temperature 37.0 C 37.0 C Heart Rate 96 Heart Rate [ 93 Brachial] Heart Rate [ 97 Monitoring electrodes] Respiratory 22 18 24 Rate Blood Pressure 114/65 [Right Brachial artery] O2 Saturation 96 96 If not protocol 3 3 3 : Oxygen Flow, liters/minute 03/04/23 03/04/23 03/04/23 00:46 03:45 06:15 Temperature 36.3 C L 37.1 C Heart Rate 93 Heart Rate [ 100 Brachial] Heart Rate [ 101 H Monitoring electrodes] Respiratory 24 24 24 Rate Blood Pressure 124/73 127/73 [Right Brachial artery] O2 Saturation 93 90 L If not protocol 3 3 3 : Oxygen Flow, liters/minute 03/04/23 08:04 Temperature 36.8 C Heart Rate Heart Rate [ 90 Brachial] Heart Rate [ Monitoring electrodes] Respiratory 18 Rate Blood Pressure 113/65 [Right Brachial artery] O2 Saturation 94 If not protocol 3 : Oxygen Flow, liters/minute Oxygen O2 Source Nasal cannula Oxygen Flow Rate 4 I&O (Last 24 Hrs): Intake and Output Totals x24h 03/02/23 03/03/23 03/04/23 23:59 23:59 23:59 Intake Total 2763.887 2911.108 1195.83 Output Total 50 Balance 2713.887 2911.108 1195.83 General: Alert, Oriented x3 HEENT: Mucous membr. moist/pink, Other (Wearing O2 per nasal cannula) Neck: Supple, No JVD Neuro: Alert, Non Focal Cardiovascular: Regular rate Respiratory: Rales (Right midlung field) Abdomen: Soft, No tenderness Extremities: No clubbing, No edema - Results Results: Laboratory Results WBC 8.0 x10^3/uL (4.8-10.8) 03/04/23 07:19 RBC 3.23 10^6/uL (4.20-5.40) L 03/04/23 07:19 Hgb 8.9 g/dL (12.0-16.0) L 03/04/23 07:19 Hct 26.2 % (37.0-47.0) L 03/04/23 07:19 MCV 81.1 fL (81.0-99.0) 03/04/23 07:19 MCH 27.6 pg (27.0-31.0) 03/04/23 07:19 MCHC 34.0 g/dL (32.0-36.0) 03/04/23 07:19 RDW 15.6 % (12.0-15.0) H 03/04/23 07:19 Plt Count 264 10^3/uL (130-450) 03/04/23 07:19 MPV 10.3 fL (7.9-10.8) 03/04/23 07:19 Neut # (Auto) Not Reportable 03/04/23 07:19 Lymph # (Auto) Not Reportable 03/04/23 07:19 Gilliam # (Auto) Not Reportable 03/04/23 07:19 Eos # (Auto) Not Reportable 03/04/23 07:19 Baso # (Auto) Not Reportable 03/04/23 07:19 Absolute Nucleated RBC Not Reportable 03/04/23 07:19 Total Counted 100 03/04/23 07:19 Band Neuts % (Manual) 4 % (0-10) 03/04/23 07:19 Abnorm Lymph % (Manual) 0 % 03/04/23 07:19 Metamyelocytes % 1 % (-0) H 03/01/23 03:57 Nucleated RBC % Not Reportable 03/04/23 07:19 Neutrophils # (Manual) 6.1 10^3/uL (1.5-6.6) 03/04/23 07:19 Lymphocytes # (Manual) 1.1 10^3/uL (1.5-3.5) L 03/04/23 07:19 Monocytes # (Manual) 0.7 10^3/uL (0.0-1.0) 03/04/23 07:19 Eosinophils # (Manual) 0.0 10^3/uL (0-0.7) 03/04/23 07:19 Basophils # (Manual) 0.1 10^3/uL (0-0.1) 03/04/23 07:19 Nucleated RBCs 1 % 03/04/23 07:19 Differential Comment MANUAL DIFFERENTIAL 03/04/23 07:19 WBC Morphology NORMAL APPEARANCE (NORMAL) 03/01/23 03:57 Platelet Estimate NORMAL (130-450,000) (NORMAL) 03/04/23 07:19 Platelet Morphology NORMAL APPEARANCE (NORMAL) 03/04/23 07:19 RBC Morph Micro Appear 1+ STOMATOCYTES (NORMAL) 1+ HYPOCHROMASIA (NORMAL) 03/04/23 07:19 RBC Morph Micro Appear 1+ STOMATOCYTES (NORMAL) 1+ HYPOCHROMASIA (NORMAL) 03/04/23 07:19 Sodium 131 mmol/L (135-145) L 03/04/23 07:19 Potassium 3.4 mmol/L (3.5-5.0) L 03/04/23 07:19 Chloride 98 mmol/L (101-111) L 03/04/23 07:19 Carbon Dioxide 24 mmol/L (21-32) 03/04/23 07:19 Anion Gap 9.0 (6-13) 03/04/23 07:19 BUN 9 mg/dL (6-20) 03/04/23 07:19 Creatinine 0.6 mg/dL (0.4-1.0) 03/04/23 07:19 Estimated GFR (MDRD) 107 (>89) 03/04/23 07:19 Glucose 113 mg/dL (70-100) H 03/04/23 07:19 Estimat Average Glucose 126 mg/dL (70-100) H 03/02/23 05:16 Hemoglobin A1c % 6.0 % (4.27-6.07) 03/02/23 05:16 Lactic Acid 0.8 mmol/L (0.5-2.2) 03/01/23 04:10 Calcium 7.9 mg/dL (8.5-10.3) L 03/04/23 07:19 Magnesium 2.6 mg/dL (1.7-2.8) 03/02/23 05:16 Iron 22 ug/dL (28-170) L 03/03/23 05:23 TIBC 197 ug/dL (250-450) L 03/03/23 05:23 % Saturation 11 % (20-50) L 03/03/23 05:23 Transferrin 141 mg/dL (192-382) L 03/03/23 05:23 Total Bilirubin 0.7 mg/dL (0.2-1.0) 03/01/23 03:57 AST 33 IU/L (10-42) 03/01/23 03:57 ALT 26 IU/L (10-60) 03/01/23 03:57 Alkaline Phosphatase 108 IU/L (42-121) 03/01/23 03:57 Total Protein 7.4 g/dL (6.7-8.2) 03/01/23 03:57 Albumin 2.5 g/dL (3.2-5.5) L 03/01/23 03:57 Globulin 4.8 g/dL (2.1-4.2) H 03/01/23 03:57 Albumin/Globulin Ratio 0.5 (1.0-2.2) L 03/01/23 03:57 Lipase 22 U/L (22-51) 03/01/23 03:57 Vitamin B12 3322 pg/mL (180-914) H 03/03/23 05:23 Folate 19.64 ng/mL (5.90 - >24.8) 03/03/23 05:23 Nasal Adenovirus (PCR) NOT DETECTED 03/01/23 03:57 Nasal B. parapertussis DNA (PCR) NOT DETECTED 03/01/23 03:57 Nasal Coronavir 229E PCR NOT DETECTED 03/01/23 03:57 Nasal Coronavir HKU1 PCR NOT DETECTED 03/01/23 03:57 Nasal Coronavir NL63 PCR NOT DETECTED 03/01/23 03:57 Nasal Coronavir OC43 PCR NOT DETECTED 03/01/23 03:57 Nasal Enterovir/Rhinovir PCR NOT DETECTED 03/01/23 03:57 Nasal Influenza B PCR NOT DETECTED 03/01/23 03:57 Nasal Influenza A PCR NOT DETECTED 03/01/23 03:57 Nasal Parainfluen 1 PCR NOT DETECTED 03/01/23 03:57 Nasal Parainfluen 2 PCR NOT DETECTED 03/01/23 03:57 Nasal Parainfluen 3 PCR NOT DETECTED 03/01/23 03:57 Nasal Parainfluen 4 PCR NOT DETECTED 03/01/23 03:57 Nasal RSV (PCR) NOT DETECTED 03/01/23 03:57 Nasal Screen MRSA (PCR) NEGATIVE (NEGATIVE) 03/02/23 19:00 Nasal B.pertussis DNA PCR NOT DETECTED 03/01/23 03:57 Nasal C.pneumoniae (PCR) NOT DETECTED 03/01/23 03:57 Jose Human Metapneumo PCR NOT DETECTED 03/01/23 03:57 Nasal M.pneumoniae (PCR) NOT DETECTED 03/01/23 03:57 Nasal SARS-CoV-2 (PCR) NOT DETECTED 03/01/23 03:57 Stl C. diff Tox B Gene NEGATIVE (NEGATIVE) 03/02/23 14:00 Sepsis Event Note (H) - Evaluation Current Stage of Sepsis: Sepsis Possible source of Sepsis: positive: Pulmonary - Sepsis Criteria Sepsis Criteria: Recorded Temperature greater than 38.3C or Less than 36C, Recorded Heart Rate greater than 90 bpm, Respiratory: Increasing oxygen requirements, WBC count greater than 12,000 or less than 4000
[2023-03-04] MEDS: PANTOPRAZOLE 40 MG TABLET PO SCH ×2 (11:05→20:25)
[2023-03-04] MEDS ORDERED: IRON DEXTRAN 1,000 MG in SODIUM CHLORIDE 0.9% 250 ML IV ONE (14:00)
[2023-03-05] MEDS: SODIUM CHLORIDE FLUSH 0.9% 10 ML SYRINGE IVP SCH ×3 (00:27→18:32)
[2023-03-05] MEDS: D5.45NS W/20 MEQ KCL 1,000 ML IV SCH ×2 (00:32→14:09)
[2023-03-05] MEDS: IPRATROPIUM/ALBUTEROL 3 ML NEB INH PRN ×4 (02:52→19:08)
[2023-03-05 05:04] LABS: BASOPHILS # (AUTO) 0.1 10^3/uL (0.0-0.1); BASOPHILS % (AUTO) 0.5 %; EOSINOPHILS # (AUTO) 0.2 10^3/uL (0.0-0.7); EOSINOPHILS % (AUTO) 2.5 %; HCT - HEMATOCRIT 26.5 % (37.0-47.0); HGB - HEMOGLOBIN 8.8 g/dL (12.0-16.0); LYMPHOCYTES # (AUTO) 1.2 10^3/uL (1.5-3.5); LYMPHOCYTES % (AUTO) 13.2 %; MEAN CORPUSCULAR HEMOGLOBIN 27.2 pg (27.0-31.0); MEAN CORPUSCULAR HGB CONC 33.2 g/dL (32.0-36.0); MEAN PLATELET VOLUME 9.8 fL (7.9-10.8); MONOCYTES # (AUTO) 0.5 10^3/uL (0.0-1.0); MONOCYTES % (AUTO) 5.6 %; NEUTROPHILS # (AUTO) 6.5 10^3/uL (1.5-6.6); NEUTROPHILS % (AUTO) 70.2 %; PLT - PLATELET COUNT 293 10^3/uL (130-450); RED BLOOD COUNT 3.23 10^6/uL (4.20-5.40); RED CELL DISTRIBUTION WIDTH 15.4 % (12.0-15.0); WHITE BLOOD COUNT 9.2 x10^3/uL (4.8-10.8)
[2023-03-05 05:14] LABS: CALCIUM 8.6 mg/dL (8.5-10.3); CREATININE 0.6 mg/dL (0.4-1.0)
[2023-03-05] MEDS: PANTOPRAZOLE 40 MG TABLET PO SCH ×2 (09:09→20:19)
[2023-03-05] MEDS: LORATADINE 10 MG TABLET PO SCH (09:09)
[2023-03-05] MEDS: FERROUS GLUCONATE 324 MG TABLET PO SCH (09:10)
[2023-03-05] MEDS: LACTOBACILLUS RHAMNOSUS GG CAPSULE PO SCH (09:10)
[2023-03-05] MEDS: MAGNESIUM OXIDE 400 MG TABLET PO SCH (09:10)
[2023-03-05] MEDS: guaiFENesin 600 MG TABLET PO SCH ×2 (09:10→20:19)
[2023-03-05] MEDS: cefTRIAXone 2 GM in SODIUM CHLORIDE 0.9% MINIBAG 100 ML IV SCH (09:22)
[2023-03-05] MEDS: FLUCONAZOLE 200 MG/100 ML 100 ML IV SCH (10:19)
[2023-03-05] MEDS: guaiFENesin/DEXTROMETHORPHAN 10 ML UDC PO PRN (10:32)
--- NOTE | 2023-03-05 11:05 | PROVIDER PROGRESS NOTE ---
Assessment/Plan - Problem List (1) Community acquired pneumonia Assessment/Plan: The patient presented with 1 week of fever, cough, and fatigue. Chest XR findings showed bilateral PNA. She denied sick contacts or recent travels, so pt and we were unsure where she could have contracted this infection. She was started on IV Zithromax and IV ceftriaxone. 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 We added IV fluconazole for fungal coverage. At her last fever spike, she had a repeat CXR which revealed "bilateral pulmonary edema either due to bilateral infectious process, CHF, and/or ARDS. Appearance is worse compared to 03/01/23." The edema is likely from getting IV fluids. MRSA nose swab was negative. Pt provided a sputum sample, and it grw only oral john. Blood also have no growth. PLAN: Continue empiric IV fluconazole, IV rocephin and she has completed a course of IV zithromax. Continue mucinex for cough. She feels better after DuoNebs therefore theseare being continued as needed (2) Hypoxia Impression: Her hypoxia is very likely due to PNA. While in the ED, her 02 saturation dropped to the range of 86 to 88% with patient reporting increasing dyspnea (see nursing note by Tal Tran on 03/01/23 04:53. As she was taken back into the room, she had a pulse ox of 82% and was tachypneic). She has needed O2 via oxymask>> nasal cannula suppl O2 4L/min>> today is the first day she was decreased down, she is on 3L/min. PLAN: Cont prn duoneb treatments and BID Mucinex for pulm toilet Continue supplemental oxygen, target is to be > 90% O2 saturated. She has no underlying Dx to qualify for home O2, thus she will remain hospitalized untu=il she is not hypoxic. I updated her on this today. (3) Iron deficiency Anemia Impression: Her hgb was 9.9at adm. Folate was normal. B12 was very high, as she forgot to mention she took B12 supplements. She was advised to discontinue that B12 supplement. Her iron panel was low, the iron deficiency could be due to bleeding, diet, or hereditary, since she states the women in her family all have anemia. She denied heavy menstruation,since she is in menopause. She denied melena or hematochezia. There is been no hematemesis. She denies a history of peptic ulcer disease but does describe some symptoms of GERD and also says that "oranges give her diarrhea" Her guaic test returned (+). I ordered a consult for an EGD but Anesthesia felt it was excessively risky given her hypoxia. So I started treating empirically for gastritis with Protonix, as recommended by consultants. I ordered Iron Dextran iv x1, she got this yesterday. PLAN: Cont oraliron supplement. Remain off the Lovenox because of the heme positive stool. I changed her DVT prophylaxis to SCDs. (Several days ago the daughter in her room told me that "using SCDs will be a trip hazard" for this pt, since her Mom gets up independently. Therefore I ordered Up with assistance, now that she is back on SCDs.) Qualifiers: Anemia type: iron deficiency Iron deficiency anemia type: unspecified iron deficiency Qualified Code(s): D50.9 - Iron deficiency anemia, unspecified (4) Seasonal allergies Impression: Pt reports having seasonal allergies. I suspect this added to her current resp infection. She requested her Claritin. PLAN: I resumed her home Claritin. (5) Diarrhea Impression: Improved On 03/02 pt reported 8 liquid stools/day. Her stool was C. diff negative. Imodium prn was started. PLAN: Cont Loperamide PRN. Cont probiotic, started on 03/03. Qualifiers: Diarrhea type: unspecified type Qualified Code(s): R19.7 - Diarrhea, unspecified (6) Hyperglycemia Impression: Blood glucose was elevated. 03/01: 126; 03/02: 120. She denies any family hx of DM. 03/03: Glucose was 126. Her HbA1c came back at 6.0, placing her in a prediabetes stage. The PNA infection is likely causing her elevated glucose. PLAN: Monitor glucose in daily BMP. [employer] pt on lifestyle modification to prevent DM. (7) Sepsis Impression: RESOLVED The patient has been sick for 8 days, and febrile for 7 days. She was dyspneic while in the ED, with O2 sat dropping to 82%. She had a temperature of 39.2 C, heart rate of 130, increasing oxygen requirements, and a leukocytosis of 13.2. Her lactic acid is 0.8, normal. The sepsis was due to CAP. Plan: Continue treating the pneumonia as above - Current Meds Current Meds: Current Medications Generic Name Dose Route Start Last Admin Trade Name Freq PRN Reason Stop Dose Admin Acetaminophen 650 mg 03/01/23 16:13 03/04/23 20:20 Acetaminophen 325 Mg Tablet PO 650 mg Q4HR PRN Administration Pain 1 to 4, or Fever Albuterol/Ipratropium 3 ml 03/01/23 16:15 03/05/23 07:49 Ipratropium/Albuterol 3 Ml Neb INH 3 ml Q4HR PRN Administration Wheezing Ferrous Gluconate 324 mg 03/03/23 09:00 03/05/23 09:10 Ferrous Gluconate 324 Mg Tablet PO 324 mg DAILYWM DILLON Administration Guaifenesin 600 mg 03/01/23 21:00 03/05/23 09:10 Guaifenesin 600 Mg Tablet PO 600 mg BID DILLON Administration Guaifenesin 10 ml 03/02/23 17:19 03/05/23 10:32 Guaifenesin/Dextromethorphan 10 Ml Udc PO 10 ml Q6HR PRN Administration Cough Ceftriaxone Sodium 2 gm/ 100 mls @ 200 mls/hr 03/02/23 09:00 03/05/23 10:00 Sodium Chloride IV Infused DAILY DILLON Infusion Potassium Chloride/Dextrose/Sod Cl 1,000 mls @ 83.333 mls/hr 03/02/23 18:00 03/05/23 00:32 D5.45ns W/20 Meq Kcl IV 83.3 mls/hr .Q12H DILLON Administration Fluconazole 100 mls @ 100 mls/hr 03/02/23 18:40 03/05/23 10:19 Diflucan 200 Mg/100 Ml IV 100 mls/hr DAILY DILLON Administration Lactobacillus Rhamnosus 1 cap 03/03/23 09:00 03/05/23 09:10 Lactobacillus Rhamnosus Gg Capsule PO 1 cap DAILY DILLON Administration Loperamide HCl 2 mg 03/02/23 18:41 03/03/23 16:44 Loperamide 2 Mg Capsule PO 2 mg QID PRN Administration Diarrhea Loratadine 10 mg 03/02/23 09:00 03/05/23 09:09 Loratadine 10 Mg Tablet PO 10 mg DAILY DILLON Administration Magnesium Oxide 400 mg 03/02/23 08:00 03/05/23 09:10 Magnesium Oxide 400 Mg Tablet PO 400 mg DAILYWM DILLON Administration Pantoprazole Sodium 40 mg 03/04/23 10:13 03/05/23 09:09 Pantoprazole 40 Mg Tablet PO 40 mg BID DILLON Administration Sodium Chloride 10 ml 03/01/23 16:13 03/04/23 15:40 Sodium Chloride Flush 0.9% 10 Ml Syringe IVP 10 ml PRN PRN Administration NEEDED PER PROVIDER ORDERS Sodium Chloride 10 ml 03/01/23 17:00 03/05/23 10:22 Sodium Chloride Flush 0.9% 10 Ml Syringe IVP Not Given 0100,0900,1700 DILLON - Lab Result Fish Bone Diagrams: 03/05/23 04:51 03/05/23 04:51 - Additional Planning My Orders: My Active Orders 03/04/23 10:10 Shower [RC] ONCE 03/04/23 10:11 SCDs [RC] QSHIFT 03/04/23 10:13 Pantoprazole [Protonix] 40 mg PO BID 03/04/23 Lunch DIET [Dysphagia - Minced and Moist] [DIET] Subjective - Subjective Patient Reports: Feeling Better (This is the first day that she feels like she has energy and that she can do a full inspiration. She is still on supplemental O2 but much less short of breath with activity) Objective Vital Signs: Vital Signs - 24 hr 03/04/23 03/04/23 03/04/23 13:34 14:55 17:00 Temperature 37.0 C 36.7 C Heart Rate 90 Heart Rate [ 105 H Brachial] Heart Rate [ Monitoring electrodes] Respiratory 20 20 Rate Blood Pressure 127/66 [Right Brachial artery] O2 Saturation 94 If not protocol 3 3 : Oxygen Flow, liters/minute 03/04/23 03/04/23 03/04/23 20:38 20:39 21:00 Temperature 37.4 C Heart Rate 112 H Heart Rate [ Brachial] Heart Rate [ 121 H Monitoring electrodes] Respiratory 20 32 H Rate Blood Pressure 143/66 H [Right Brachial artery] O2 Saturation 85 L If not protocol 3 3 3 : Oxygen Flow, liters/minute 03/04/23 03/05/23 03/05/23 21:17 00:39 02:55 Temperature 37.1 C Heart Rate 89 Heart Rate [ 91 Brachial] Heart Rate [ Monitoring electrodes] Respiratory 21 20 Rate Blood Pressure 105/62 [Right Brachial artery] O2 Saturation 91 L 93 If not protocol 4 4 4 : Oxygen Flow, liters/minute 03/05/23 03/05/23 03/05/23 04:53 07:50 08:46 Temperature 37.7 C 36.6 C Heart Rate 110 H Heart Rate [ 109 H 101 H Brachial] Heart Rate [ Monitoring electrodes] Respiratory 20 20 18 Rate Blood Pressure 118/71 115/67 [Right Brachial artery] O2 Saturation 92 96 If not protocol 4 4 4 : Oxygen Flow, liters/minute Oxygen O2 Source Nasal cannula Oxygen Flow Rate 4 I&O (Last 24 Hrs): Intake and Output Totals x24h 03/03/23 03/04/23 03/05/23 23:59 23:59 23:59 Intake Total 2911.108 2775.830 640 Balance 2911.108 2775.830 640 General: Alert, Oriented x3 HEENT: Mucous membr. moist/pink, Other (edentulous upper) Neck: Supple, No JVD Neuro: Alert, Non Focal Cardiovascular: Regular rate, No murmurs Respiratory: Rales (R base), Other (Good expansion inspiration, no wheezes) Abdomen: Normal bowel sounds, Soft, No tenderness Extremities: No clubbing, No edema, No tenderness/swelling - Results Results: Laboratory Results WBC 9.2 x10^3/uL (4.8-10.8) 03/05/23 04:51 RBC 3.23 10^6/uL (4.20-5.40) L 03/05/23 04:51 Hgb 8.8 g/dL (12.0-16.0) L 03/05/23 04:51 Hct 26.5 % (37.0-47.0) L 03/05/23 04:51 MCV 82.0 fL (81.0-99.0) 03/05/23 04:51 MCH 27.2 pg (27.0-31.0) 03/05/23 04:51 MCHC 33.2 g/dL (32.0-36.0) 03/05/23 04:51 RDW 15.4 % (12.0-15.0) H 03/05/23 04:51 Plt Count 293 10^3/uL (130-450) 03/05/23 04:51 MPV 9.8 fL (7.9-10.8) 03/05/23 04:51 Neut # (Auto) 6.5 10^3/uL (1.5-6.6) 03/05/23 04:51 Lymph # (Auto) 1.2 10^3/uL (1.5-3.5) L 03/05/23 04:51 [place] # (Auto) 0.5 10^3/uL (0.0-1.0) 03/05/23 04:51 Eos # (Auto) 0.2 10^3/uL (0.0-0.7) 03/05/23 04:51 Baso # (Auto) 0.1 10^3/uL (0.0-0.1) 03/05/23 04:51 Absolute Nucleated RBC 0.00 x10^3/uL 03/05/23 04:51 Total Counted 100 03/04/23 07:19 Band Neuts % (Manual) 4 % (0-10) 03/04/23 07:19 Abnorm Lymph % (Manual) 0 % 03/04/23 07:19 Metamyelocytes % 1 % (-0) H 03/01/23 03:57 Nucleated RBC % 0.0 /100WBC 03/05/23 04:51 Neutrophils # (Manual) 6.1 10^3/uL (1.5-6.6) 03/04/23 07:19 Lymphocytes # (Manual) 1.1 10^3/uL (1.5-3.5) L 03/04/23 07:19 Monocytes # (Manual) 0.7 10^3/uL (0.0-1.0) 03/04/23 07:19 Eosinophils # (Manual) 0.0 10^3/uL (0-0.7) 03/04/23 07:19 Basophils # (Manual) 0.1 10^3/uL (0-0.1) 03/04/23 07:19 Nucleated RBCs 1 % 03/04/23 07:19 Differential Comment MANUAL DIFFERENTIAL 03/04/23 07:19 WBC Morphology NORMAL APPEARANCE (NORMAL) 03/01/23 03:57 Platelet Estimate NORMAL (130-450,000) (NORMAL) 03/04/23 07:19 Platelet Morphology NORMAL APPEARANCE (NORMAL) 03/04/23 07:19 RBC Morph Micro Appear 1+ STOMATOCYTES (NORMAL) 1+ HYPOCHROMASIA (NORMAL) 03/04/23 07:19 RBC Morph Micro Appear 1+ STOMATOCYTES (NORMAL) 1+ HYPOCHROMASIA (NORMAL) 03/04/23 07:19 Sodium 137 mmol/L (135-145) 03/05/23 04:51 Potassium 4.0 mmol/L (3.5-5.0) 03/05/23 04:51 Chloride 103 mmol/L (101-111) 03/05/23 04:51 Carbon Dioxide 26 mmol/L (21-32) 03/05/23 04:51 Anion Gap 8.0 (6-13) 03/05/23 04:51 BUN 8 mg/dL (6-20) 03/05/23 04:51 Creatinine 0.6 mg/dL (0.4-1.0) 03/05/23 04:51 Estimated GFR (MDRD) 107 (>89) 03/05/23 04:51 Glucose 110 mg/dL (70-100) H 03/05/23 04:51 Estimat Average Glucose 126 mg/dL (70-100) H 03/02/23 05:16 Hemoglobin A1c % 6.0 % (4.27-6.07) 03/02/23 05:16 Lactic Acid 0.8 mmol/L (0.5-2.2) 03/01/23 04:10 Calcium 8.6 mg/dL (8.5-10.3) 03/05/23 04:51 Magnesium 2.6 mg/dL (1.7-2.8) 03/02/23 05:16 Iron 22 ug/dL (28-170) L 03/03/23 05:23 TIBC 197 ug/dL (250-450) L 03/03/23 05:23 % Saturation 11 % (20-50) L 03/03/23 05:23 Transferrin 141 mg/dL (192-382) L 03/03/23 05:23 Total Bilirubin 0.7 mg/dL (0.2-1.0) 03/01/23 03:57 AST 33 IU/L (10-42) 03/01/23 03:57 ALT 26 IU/L (10-60) 03/01/23 03:57 Alkaline Phosphatase 108 IU/L (42-121) 03/01/23 03:57 B-Natriuretic Peptide 111 pg/mL (5-100) H 03/04/23 07:19 Total Protein 7.4 g/dL (6.7-8.2) 03/01/23 03:57 Albumin 2.5 g/dL (3.2-5.5) L 03/01/23 03:57 Globulin 4.8 g/dL (2.1-4.2) H 03/01/23 03:57 Albumin/Globulin Ratio 0.5 (1.0-2.2) L 03/01/23 03:57 Lipase 22 U/L (22-51) 03/01/23 03:57 Vitamin B12 3322 pg/mL (180-914) H 03/03/23 05:23 Folate 19.64 ng/mL (5.90 - >24.8) 03/03/23 05:23 Nasal Adenovirus (PCR) NOT DETECTED 03/01/23 03:57 Nasal B. parapertussis DNA (PCR) NOT DETECTED 03/01/23 03:57 Nasal Coronavir 229E PCR NOT DETECTED 03/01/23 03:57 Nasal Coronavir HKU1 PCR NOT DETECTED 03/01/23 03:57 Nasal Coronavir NL63 PCR NOT DETECTED 03/01/23 03:57 Nasal Coronavir OC43 PCR NOT DETECTED 03/01/23 03:57 Nasal Enterovir/Rhinovir PCR NOT DETECTED 03/01/23 03:57 Nasal Influenza B PCR NOT DETECTED 03/01/23 03:57 Nasal Influenza A PCR NOT DETECTED 03/01/23 03:57 Nasal Parainfluen 1 PCR NOT DETECTED 03/01/23 03:57 Nasal Parainfluen 2 PCR NOT DETECTED 03/01/23 03:57 Nasal Parainfluen 3 PCR NOT DETECTED 03/01/23 03:57 Nasal Parainfluen 4 PCR NOT DETECTED 03/01/23 03:57 Nasal RSV (PCR) NOT DETECTED 03/01/23 03:57 Nasal Screen MRSA (PCR) NEGATIVE (NEGATIVE) 03/02/23 19:00 Nasal B.pertussis DNA PCR NOT DETECTED 03/01/23 03:57 Nasal C.pneumoniae (PCR) NOT DETECTED 03/01/23 03:57 Jose Human Metapneumo PCR NOT DETECTED 03/01/23 03:57 Nasal M.pneumoniae (PCR) NOT DETECTED 03/01/23 03:57 Nasal SARS-CoV-2 (PCR) NOT DETECTED 03/01/23 03:57 Stl C. diff Tox B Gene NEGATIVE (NEGATIVE) 03/02/23 14:00 Sepsis Event Note (H) - Evaluation Current Stage of Sepsis: Sepsis Possible source of Sepsis: positive: Pulmonary - Sepsis Criteria Sepsis Criteria: Recorded Temperature greater than 38.3C or Less than 36C, Recorded Heart Rate greater than 90 bpm, Respiratory: Increasing oxygen requirements, WBC count greater than 12,000 or less than 4000
[2023-03-05] MEDS: ACETAMINOPHEN 325 MG TABLET PO PRN ×2 (11:32→16:43)
--- NOTE | 2023-03-05 13:53 | ED Physician Documentation ---
ED Addendum - Addendum Addendum: 03/05/23 13:50 Request for further addendum by medical records. The patient had been okay here in the emergency department. Hospital bed became available and I notified and gave discussion with the hospitalist. Agreement to hospitalize the patient. She remained stable. Disposition: The patient is placed in the hospital in stable condition Diagnoses: 1. pneumonia 2. hypoxia 3. anemia 03/05/23 13:53
[2023-03-06] MEDS: SODIUM CHLORIDE FLUSH 0.9% 10 ML SYRINGE IVP SCH ×3 (00:03→15:52)
[2023-03-06] MEDS: guaiFENesin/DEXTROMETHORPHAN 10 ML UDC PO PRN ×3 (00:09→15:52)
[2023-03-06] MEDS: D5.45NS W/20 MEQ KCL 1,000 ML IV SCH (02:01)
[2023-03-06] MEDS: LOPERAMIDE 2 MG CAPSULE PO PRN ×3 (05:00→17:54)
[2023-03-06] MEDS: ACETAMINOPHEN 325 MG TABLET PO PRN ×3 (08:08→17:54)
[2023-03-06] MEDS: FERROUS GLUCONATE 324 MG TABLET PO SCH (08:08)
[2023-03-06] MEDS: LACTOBACILLUS RHAMNOSUS GG CAPSULE PO SCH (08:08)
[2023-03-06] MEDS: guaiFENesin 600 MG TABLET PO SCH ×2 (08:08→21:36)
[2023-03-06] MEDS: LORATADINE 10 MG TABLET PO SCH (08:09)
[2023-03-06] MEDS: cefTRIAXone 2 GM in SODIUM CHLORIDE 0.9% MINIBAG 100 ML IV SCH (08:09)
[2023-03-06] MEDS: PANTOPRAZOLE 40 MG TABLET PO SCH ×2 (08:09→21:36)
[2023-03-06] MEDS: MAGNESIUM OXIDE 400 MG TABLET PO SCH (08:09)
[2023-03-06] MEDS: FLUCONAZOLE 200 MG/100 ML 100 ML IV SCH (08:35)
[2023-03-06] MEDS ORDERED: IPRATROPIUM/ALBUTEROL 3 ML NEB INH PRN (10:53)
--- NOTE | 2023-03-06 13:13 | PROVIDER PROGRESS NOTE ---
Assessment/Plan - Problem List (1) Community acquired pneumonia Assessment/Plan: The patient presented with 1 week of fever, cough, and fatigue. Chest XR findings showed bilateral PNA. She denied sick contacts or recent travels, so pt and we were unsure where she could have contracted this infection. She was started on IV Zithromax and IV ceftriaxone. 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 We added IV fluconazole for fungal coverage. At her last fever spike, she had a repeat CXR which revealed "bilateral pulmonary edema either due to bilateral infectious process, CHF, and/or ARDS. Appearance is worse compared to 03/01/23." The edema is likely from getting IV fluids. MRSA nose swab was negative. Pt provided a sputum sample, and it grew only oral john. Blood also have no growth. Today she is finishing a week course of empiric IV fluconazole, IV rocephin and she has already completed a course of IV zithromax. PLAN: Continue mucinex for cough. Is also getting benefit from IS and Acapella device She feels better after DuoNebs therefore these are being continued prn, and I plan on discharging her with a Bronchodilator inhaler. She needs to be tested for asthma as an outpatient with PFTs I told her today. (2) Hypoxia Impression: Her hypoxia is very likely due to PNA. While in the ED, her 02 saturation dropped to the range of 86 to 88% with patient reporting increasing dyspnea (see nursing note by Tal Tran on 03/01/23 04:53. As she was taken back into the room, she had a pulse ox of 82% and was tachypneic). She has needed O2 via oxymask>> nasal cannula suppl O2 4L/min>> today is the first day she was decreased down, she is on 3L/min. PLAN: Cont prn duoneb treatments and BID Mucinex for pulm toilet Continue supplemental oxygen, target is to be > 90% O2 saturated. She has no underlying Dx to qualify for home O2, thus she will remain hospitalized until she is not hypoxic. I asked her RN to wean O2 to off if possible (3) Iron deficiency Anemia Impression: Her hgb was 9.9at adm. Folate was normal. B12 was very high, as she forgot to mention she took B12 supplements. She was advised to discontinue that B12 supplement. Her iron panel was low, the iron deficiency could be due to bleeding, diet, or hereditary, since she states the women in her family all have anemia. She denied heavy menstruation,since she is in menopause. She denied melena or hematochezia. There is been no hematemesis. She denies a history of peptic ulcer disease but does describe some symptoms of GERD and also says that "oranges give her diarrhea" Her guaic test returned (+). I ordered a consult for an EGD but Anesthesia felt it was excessively risky given her hypoxia. So I started treating empirically for gastritis with Protonix, as recommended by consultants. I ordered Iron Dextran iv x1, she got this. I changed her DVT prophylaxis to SCDs. (Several days ago the daughter in her room told me that "using SCDs will be a trip hazard" for this pt, since her Mom gets up independently. Therefore I ordered Up with assistance, now that she is back on SCDs.) PLAN: Cont oral iron supplement and empiroc PPI. Remain off the Lovenox because of the heme positive stool. Qualifiers: Anemia type: iron deficiency Iron deficiency anemia type: unspecified iron deficiency Qualified Code(s): D50.9 - Iron deficiency anemia, unspecified (4) Seasonal allergies Impression: Pt reports having seasonal allergies. I suspect this added to her current resp infection. She requested her Claritin. PLAN: I resumed her home Claritin. I plan on discharging her with a Bronchodilator inhaler. She needs to be tested for asthma as an outpatient with PFTs I told her today. (5) Diarrhea Impression: Improved On 03/02 pt reported 8 liquid stools/day. Her stool was C. diff negative. Imodium prn was started. PLAN: Cont Loperamide PRN. Cont probiotic, started on 03/03. Qualifiers: Diarrhea type: unspecified type Qualified Code(s): R19.7 - Diarrhea, unspecified (6) Hyperglycemia Impression: Blood glucose was elevated. 03/01: 126; 03/02: 120. She denies any family hx of DM. 03/03: Glucose was 126. Her HbA1c came back at 6.0, placing her in a prediabetes stage. The PNA infection is likely causing her elevated glucose. PLAN: Monitor glucose in daily BMP. Drug Counselor pt on lifestyle modification to prevent DM. (7) Sepsis Impression: RESOLVED The patient has been sick for 8 days, and febrile for 7 days. She was dyspneic while in the ED, with O2 sat dropping to 82%. She had a temperature of 39.2 C, heart rate of 130, increasing oxygen requirements, and a leukocytosis of 13.2. Her lactic acid is 0.8, normal. The sepsis was due to CAP. Plan: Continue treating the pneumonia as above - Current Meds Current Meds: Current Medications Generic Name Dose Route Start Last Admin Trade Name Freq PRN Reason Stop Dose Admin Acetaminophen 650 mg 03/01/23 16:13 03/06/23 08:08 Acetaminophen 325 Mg Tablet PO 650 mg Q4HR PRN Administration Pain 1 to 4, or Fever Ferrous Gluconate 324 mg 03/03/23 09:00 03/06/23 08:08 Ferrous Gluconate 324 Mg Tablet PO 324 mg DAILYWM DILLON Administration Guaifenesin 600 mg 03/01/23 21:00 03/06/23 08:08 Guaifenesin 600 Mg Tablet PO 600 mg BID DILLON Administration Guaifenesin 10 ml 03/02/23 17:19 03/06/23 08:08 Guaifenesin/Dextromethorphan 10 Ml Udc PO 10 ml Q6HR PRN Administration Cough Ceftriaxone Sodium 2 gm/ 100 mls @ 200 mls/hr 03/02/23 09:00 03/06/23 09:22 Sodium Chloride IV 03/07/23 23:00 Infused DAILY DILLON Infusion Lactobacillus Rhamnosus 1 cap 03/03/23 09:00 03/06/23 08:08 Lactobacillus Rhamnosus Gg Capsule PO 1 cap DAILY DILLON Administration Loperamide HCl 2 mg 03/02/23 18:41 03/06/23 11:43 Loperamide 2 Mg Capsule PO 2 mg QID PRN Administration Diarrhea Loratadine 10 mg 03/02/23 09:00 03/06/23 08:09 Loratadine 10 Mg Tablet PO 10 mg DAILY DILLON Administration Magnesium Oxide 400 mg 03/02/23 08:00 03/06/23 08:09 Magnesium Oxide 400 Mg Tablet PO 400 mg DAILYWM DILLON Administration Pantoprazole Sodium 40 mg 03/04/23 10:13 03/06/23 08:09 Pantoprazole 40 Mg Tablet PO 40 mg BID DILLON Administration Sodium Chloride 10 ml 03/01/23 16:13 03/04/23 15:40 Sodium Chloride Flush 0.9% 10 Ml Syringe IVP 10 ml PRN PRN Administration NEEDED PER PROVIDER ORDERS Sodium Chloride 10 ml 03/01/23 17:00 03/06/23 08:09 Sodium Chloride Flush 0.9% 10 Ml Syringe IVP 10 ml 0100,[id number],1700 DILLON Administration - Lab Result Fish Bone Diagrams: 03/05/23 04:51 03/05/23 04:51 - Additional Planning My Orders: My Active Orders 03/05/23 19:14 RT [Acapella (Flutter Valve Device] [RC] .TID 03/06/23 09:26 Miscellaenous Nursing Order [RC] QSHIFT 03/06/23 10:53 Ipratropium/Albuterol [Duoneb] 3 ml INH Q6HR PRN Subjective - Subjective Patient Reports: Feeling Better (Less short of breath. She is happy that her nasal cannula O2 is being weaned down.) Objective Vital Signs: Vital Signs - 24 hr 03/05/23 03/05/23 03/05/23 13:15 16:27 19:05 Temperature 37.0 C Heart Rate 108 H 106 H Heart Rate [ 97 Brachial] Heart Rate [ Monitoring electrodes] Respiratory 18 18 18 Rate Blood Pressure 134/74 H [Right Brachial artery] O2 Saturation 98 If not protocol 3 4 2 : Oxygen Flow, liters/minute 03/05/23 03/06/23 03/06/23 20:16 00:06 04:55 Temperature 36.7 C 37.0 C 36.7 C Heart Rate Heart Rate [ 95 Brachial] Heart Rate [ 109 H 111 H Monitoring electrodes] Respiratory 20 22 20 Rate Blood Pressure 103/62 121/65 107/62 [Right Brachial artery] O2 Saturation 93 93 94 If not protocol 2 2 2 : Oxygen Flow, liters/minute 03/06/23 03/06/23 03/06/23 07:46 08:45 13:05 Temperature 36.5 C 36.3 C L Heart Rate Heart Rate [ 100 101 H Brachial] Heart Rate [ Monitoring electrodes] Respiratory 22 20 Rate Blood Pressure 109/60 114/64 [Right Brachial artery] O2 Saturation 96 97 If not protocol 2 2 1 : Oxygen Flow, liters/minute Oxygen O2 Source Nasal cannula Oxygen Flow Rate 4 I&O (Last 24 Hrs): Intake and Output Totals x24h 03/04/23 03/05/23 03/06/23 23:59 23:59 23:59 Intake Total 2775.830 2560 1560 Balance 2775.830 2560 1560 General: Alert, Oriented x3 HEENT: Mucous membr. moist/pink, Other (wearing O2 n.c.) Neck: Supple, No JVD Neuro: Alert, Non Focal Cardiovascular: Regular rate, No murmurs Respiratory: No respiratory distress (on O2 suppl via n.c.), Rales (R mid-lung field) Extremities: No clubbing, No edema, No tenderness/swelling - Results Results: Laboratory Results WBC 9.2 x10^3/uL (4.8-10.8) 03/05/23 04:51 RBC 3.23 10^6/uL (4.20-5.40) L 03/05/23 04:51 Hgb 8.8 g/dL (12.0-16.0) L 03/05/23 04:51 Hct 26.5 % (37.0-47.0) L 03/05/23 04:51 MCV 82.0 fL (81.0-99.0) 03/05/23 04:51 MCH 27.2 pg (27.0-31.0) 03/05/23 04:51 MCHC 33.2 g/dL (32.0-36.0) 03/05/23 04:51 RDW 15.4 % (12.0-15.0) H 03/05/23 04:51 Plt Count 293 10^3/uL (130-450) 03/05/23 04:51 MPV 9.8 fL (7.9-10.8) 03/05/23 04:51 Neut # (Auto) 6.5 10^3/uL (1.5-6.6) 03/05/23 04:51 Lymph # (Auto) 1.2 10^3/uL (1.5-3.5) L 03/05/23 04:51 [place] # (Auto) 0.5 10^3/uL (0.0-1.0) 03/05/23 04:51 Eos # (Auto) 0.2 10^3/uL (0.0-0.7) 03/05/23 04:51 Baso # (Auto) 0.1 10^3/uL (0.0-0.1) 03/05/23 04:51 Absolute Nucleated RBC 0.00 x10^3/uL 03/05/23 04:51 Total Counted 100 03/04/23 07:19 Band Neuts % (Manual) 4 % (0-10) 03/04/23 07:19 Abnorm Lymph % (Manual) 0 % 03/04/23 07:19 Metamyelocytes % 1 % (-0) H 03/01/23 03:57 Nucleated RBC % 0.0 /100WBC 03/05/23 04:51 Neutrophils # (Manual) 6.1 10^3/uL (1.5-6.6) 03/04/23 07:19 Lymphocytes # (Manual) 1.1 10^3/uL (1.5-3.5) L 03/04/23 07:19 Monocytes # (Manual) 0.7 10^3/uL (0.0-1.0) 03/04/23 07:19 Eosinophils # (Manual) 0.0 10^3/uL (0-0.7) 03/04/23 07:19 Basophils # (Manual) 0.1 10^3/uL (0-0.1) 03/04/23 07:19 Nucleated RBCs 1 % 03/04/23 07:19 Differential Comment MANUAL DIFFERENTIAL 03/04/23 07:19 WBC Morphology NORMAL APPEARANCE (NORMAL) 03/01/23 03:57 Platelet Estimate NORMAL (130-450,000) (NORMAL) 03/04/23 07:19 Platelet Morphology NORMAL APPEARANCE (NORMAL) 03/04/23 07:19 RBC Morph Micro Appear 1+ STOMATOCYTES (NORMAL) 1+ HYPOCHROMASIA (NORMAL) 03/04/23 07:19 RBC Morph Micro Appear 1+ STOMATOCYTES (NORMAL) 1+ HYPOCHROMASIA (NORMAL) 03/04/23 07:19 Sodium 137 mmol/L (135-145) 03/05/23 04:51 Potassium 4.0 mmol/L (3.5-5.0) 03/05/23 04:51 Chloride 103 mmol/L (101-111) 03/05/23 04:51 Carbon Dioxide 26 mmol/L (21-32) 03/05/23 04:51 Anion Gap 8.0 (6-13) 03/05/23 04:51 BUN 8 mg/dL (6-20) 03/05/23 04:51 Creatinine 0.6 mg/dL (0.4-1.0) 03/05/23 04:51 Estimated GFR (MDRD) 107 (>89) 03/05/23 04:51 Glucose 110 mg/dL (70-100) H 03/05/23 04:51 Estimat Average Glucose 126 mg/dL (70-100) H 03/02/23 05:16 Hemoglobin A1c % 6.0 % (4.27-6.07) 03/02/23 05:16 Lactic Acid 0.8 mmol/L (0.5-2.2) 03/01/23 04:10 Calcium 8.6 mg/dL (8.5-10.3) 03/05/23 04:51 Magnesium 2.6 mg/dL (1.7-2.8) 03/02/23 05:16 Iron 22 ug/dL (28-170) L 03/03/23 05:23 TIBC 197 ug/dL (250-450) L 03/03/23 05:23 % Saturation 11 % (20-50) L 03/03/23 05:23 Transferrin 141 mg/dL (192-382) L 03/03/23 05:23 Total Bilirubin 0.7 mg/dL (0.2-1.0) 03/01/23 03:57 AST 33 IU/L (10-42) 03/01/23 03:57 ALT 26 IU/L (10-60) 03/01/23 03:57 Alkaline Phosphatase 108 IU/L (42-121) 03/01/23 03:57 B-Natriuretic Peptide 111 pg/mL (5-100) H 03/04/23 07:19 Total Protein 7.4 g/dL (6.7-8.2) 03/01/23 03:57 Albumin 2.5 g/dL (3.2-5.5) L 03/01/23 03:57 Globulin 4.8 g/dL (2.1-4.2) H 03/01/23 03:57 Albumin/Globulin Ratio 0.5 (1.0-2.2) L 03/01/23 03:57 Lipase 22 U/L (22-51) 03/01/23 03:57 Vitamin B12 3322 pg/mL (180-914) H 03/03/23 05:23 Folate 19.64 ng/mL (5.90 - >24.8) 03/03/23 05:23 Nasal Adenovirus (PCR) NOT DETECTED 03/01/23 03:57 Nasal B. parapertussis DNA (PCR) NOT DETECTED 03/01/23 03:57 Nasal Coronavir 229E PCR NOT DETECTED 03/01/23 03:57 Nasal Coronavir HKU1 PCR NOT DETECTED 03/01/23 03:57 Nasal Coronavir NL63 PCR NOT DETECTED 03/01/23 03:57 Nasal Coronavir OC43 PCR NOT DETECTED 03/01/23 03:57 Nasal Enterovir/Rhinovir PCR NOT DETECTED 03/01/23 03:57 Nasal Influenza B PCR NOT DETECTED 03/01/23 03:57 Nasal Influenza A PCR NOT DETECTED 03/01/23 03:57 Nasal Parainfluen 1 PCR NOT DETECTED 03/01/23 03:57 Nasal Parainfluen 2 PCR NOT DETECTED 03/01/23 03:57 Nasal Parainfluen 3 PCR NOT DETECTED 03/01/23 03:57 Nasal Parainfluen 4 PCR NOT DETECTED 03/01/23 03:57 Nasal RSV (PCR) NOT DETECTED 03/01/23 03:57 Nasal Screen MRSA (PCR) NEGATIVE (NEGATIVE) 03/02/23 19:00 Nasal B.pertussis DNA PCR NOT DETECTED 03/01/23 03:57 Nasal C.pneumoniae (PCR) NOT DETECTED 03/01/23 03:57 Jose Human Metapneumo PCR NOT DETECTED 03/01/23 03:57 Nasal M.pneumoniae (PCR) NOT DETECTED 03/01/23 03:57 Nasal SARS-CoV-2 (PCR) NOT DETECTED 03/01/23 03:57 Stl C. diff Tox B Gene NEGATIVE (NEGATIVE) 03/02/23 14:00 Sepsis Event Note (H) - Evaluation Current Stage of Sepsis: Sepsis Possible source of Sepsis: positive: Pulmonary - Sepsis Criteria Sepsis Criteria: Recorded Temperature greater than 38.3C or Less than 36C, Recorded Heart Rate greater than 90 bpm, Respiratory: Increasing oxygen requirements, WBC count greater than 12,000 or less than 4000
[2023-03-06] MEDS ORDERED: BENZOCAINE/MENTHOL LOZENGE MM PRN (15:53)
[2023-03-07] MEDS: SODIUM CHLORIDE FLUSH 0.9% 10 ML SYRINGE IVP SCH ×2 (02:47→09:15)
[2023-03-07] MEDS: ACETAMINOPHEN 325 MG TABLET PO PRN (04:35)
[2023-03-07] MEDS: guaiFENesin/DEXTROMETHORPHAN 10 ML UDC PO PRN (04:36)
--- NOTE | 2023-03-07 07:36 | Discharge Plan ---
Discharge Plan Problem Reviewed?: Yes Disposition: Home, Self Care Condition: Stable Prescriptions: Fluticasone/Salmeterol [Advair Hfa 115-21 Mcg Inhaler] 8 gm IH BID #1 ea Ferrous Gluconate [Fergon] 324 mg PO DAILY #30 tab Pantoprazole [Protonix] 40 mg PO BID #40 tab Diet: Regular Activity Restrictions: Activity as Tolerated Shower Restrictions: No Driving Restrictions: No Health Concerns: You were hospitalized to treat your shortness of breath, and very low oxygen level, which were caused by a severe pneumonia. You needed bronchodilators to open your airways and IV antibiotics. You have completed the full course of antibiotics. You are being discharged home woth a new prescription for an inhaler to continue providing bronchodilation. You may keep using Mucinex, Robitussin and Cepacol that you can get from [id number], without a prescription. I recommend you get pulmonary function testing (PFTs) done, to check if you have asthma, which is often present in people who have bad seasonal allergies. Your doctor should order that. You may resume taking all your pre-hospital medications and supplements, except stop taking the B12 because you have too much B12 in your bloodstream. We also found you to have anemia and you got a dose of IV iron. You are also being prescribed 3 more weeks of treatment for presumed gastritis, which may have led to bleeding in your bowel. Iron tablets are also prescribed for you to build up your hemoglobin. Remember to talk about the hospital test finding of blood in your bowel movement, when you see your medical provider. You may need upper and lower endoscopy. All your new prescriptions were electronically sent to your [facility] pharmacy in [place]. Please see a provider at the [facility] in the next 7-10 days, for a hospital follow-up visit, and then get established permanently with a primary care provider in April or sooner. Plan of Treatment: As above. Care Goals: Improvement in symptoms and stabilization are the goals. Assessment: The patient understands and is agreeable with the plan. Additional Instructions or Follow Up instructions: If you have new or worsening symptoms, call the [facility] for advice, or see your new primary care provider, or come to the ER. No Smoking: If you smoke, Please STOP! Call for help.
--- NOTE | 2023-03-07 07:49 | DISCHARGE SUMMARY ---
Discharge Summary Admit Date: 03/01/23 Discharge Date: 03/07/23 Discharging Provider: Dr Yecenia Ni Primary Care Provider: Emily Randle Condition at Discharge: Stable Discharge Disposition: 01 Home, Self Care - DIAGNOSES Admission Diagnoses: (1) Sepsis (2) Community acquired pneumonia (3) Hypoxia - HPI History of Present Illness: Patient came to ED for fever and generalized weakness. She was urged to go to ED by her daughter due to her fever and cough which began 8 days ago with episodic cramping pain in all 4 extremities. A day later she became febrile. Approximately 3 to 4 days ago, she developed chest congestion, increasing shortness of breath, increasing cough that is scantily productive of yellow sputum, and getting more weak. She says she has been having fevers to a Tmax of 103.7 F. Her last dose of antipyretic was at approximately 1 AM this morning before arriving to the ED. She denies any medical history except seasonal allergies, although she also acknowledges that she has not seen a doctor in several years. She denies nausea/vomiting. She has had mild diarrhea. She has had a COVID vaccination, plus a single booster. Denies recent airplane travel, denies long car trips. Chest x-ray in ED demonstrated bilateral pulmonary infiltrates, markedly more pronounced on the right side. On CBC, WBC 13.2 witha L shify and Hgb 9.9. Her Lactic Acid level was normal, and the respiratory PCR panel was entirely negative. In the ED, RN did note her O2 sat dropped to 87 to 88% on room air and suppl O2 was started. After the chest x-ray and blood tests were resulted, the suppl oxygen was discontinued, and the ED RN then ambulated patient in the ED hallway and noted the pulse ox would drop to 86 to 88% with patient reporting increasing dyspnea. As she was being brought back into the room, she had a pulse ox of 82% on room air. Patient was tachypneic at that point. ED RN restarted the oxygen at 2 L/min, which again improved her pulse ox to 92 to 93%, also providing improvement in dyspnea and tachypnea. Patient was tachycardic for much of her ED stay, especially when she desaturated. She had blood cx done and was given 2 g of IV Rocephin and 500 mg of IV Zithromax and the Hospitalist team was called for admission. Currently she is afebrile. Her daughter, who is a nurse, is present during exam and is helping provide history. Pt reports feeling better since the ED. She reports having slept only 3 hours since Tuesday, due to her cough. She is a former smoker of 25 years who quit 10 years ago. She denies a history of asthma but does have seasonal allergies. She also says "everyone in her family has anemia". 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 - HOSPITAL COURSE Hospital Course: (1) Sepsis The patient had been sick for 8 days, and febrile for 7 days. She was de saturating to 82%. She had a temperature of 39.2 C, heart rate of 130, increasing oxygen requirements, and a leukocytosis of 13.2. Her lactic acid is 0.8, normal. The sepsis was due to CAP. (2) Community acquired pneumonia The patient presented with 1 week of fever, cough, and fatigue. Chest XR findings showed bilateral PNA. MRSA nose swab was negative. Respir PCR panel was neg. She denied sick contacts or recent travels, so we were unsure where she could have contracted this infection. She was started on IV Zithromax and IV ceftriaxone. 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 We added IV fluconazole for fungal coverage. Her blood cultures were all negative. Her sputum culture only grew oral john. She completed a 1 week course of empiric antibiotic and antifungal treatment. (3) Hypoxia Her hypoxia was due to her PNA, but she was not easily weaned down to room air, she required supplemental O2 until the day before discharge. I am concerned that she might have asthma. She needs to be tested for reactive or obstructive airway disease, with PFTs done as an outpatient. (4) Iron deficiency Anemia Her hgb was 9.9 at adm. Folate was normal. B12 was very high, and she admitted she took B12 supplements. She was advised to discontinue that B12 supplement. Her iron panel was low and she stated the women in her family all have anemia. She denied heavy menstruation, since she is in menopause. She denied melena, hematochezia, or hematemesis. She denies a history of peptic ulcer disease but did describe some symptoms of GERD and also reported that "oranges give her diarrhea". Her guaic test returned (+). I stopped the Lovenox for DVT prophylaxis, she got SCDs. She was seen by Gen Surgeon in consult for an EGD but Anesthesia felt it was excessively risky given her level of hypoxia. So I started treating her empirically for gastritis with Protonix bid, as recommended by consultants. She also received 1 dose of IV Iron Dextran and was started on oral iron replacement daily. She was discharged home to empirically take Protonix twice daily for 3 more weeks. (5) Seasonal allergies Pt reports having seasonal allergies. I suspect this added to her current upper respiratory infection. She requested her Claritin. She was also treated with Mucinex twice daily scheduled, as needed Robitussin liquid and as needed Cepacol lozenges. DuoNeb bronchodilator was used prn here and it gave her much improvement. I discharged her on Advair inhaler. I recommend she have PFTs done, to check for asthma. (6) Diarrhea This started after receiving IV antibiotics. Her stool was C. diff negative. Imodium prn was started and diarrhea resolved. (7) Hyperglycemia Blood glucose was elevated on adm labs. She denied a family hx of DM. Her HbA1c came back at 6.0, placing her in a prediabetes stage. The infection likely causing gave her elevated glucose. Counselled pt on lifestyle modification to prevent DM. - ALLERGIES Allergies/Adverse Reactions: Allergies Allergy/AdvReac Type Severity Reaction Status Date / Time No Known Drug Allergies Allergy Verified 03/01/23 04:40 - MEDICATIONS Home Medications: Ambulatory Orders Medication Instructions Recorded Confirmed Amberen 2 tab PO DAILY 03/01/23 Diphenhyd/Phenyleph/Acetaminop 20 ml PO HS 03/01/23 03/01/23 [Robitussin Cold-Flu Night Liq] Dm/Acetaminophen/Doxylamine [Vicks 30 ml PO Q4HR PRN 03/01/23 03/01/23 Nyquil Cold-Flu Liquid] Guaifenesin/Dextromethorphan 1 tab PO BID 03/01/23 03/01/23 [Mucinex Dm ER 600-30 mg Tablet] Guaifenesin/Dextromethorphan 20 ml PO DAILY PRN 03/01/23 03/01/23 [Robitussin Cough-Chest Dm Liq] Ibuprofen 4 tab PO Q6HR PRN 03/01/23 03/01/23 Loratadine [Claritin] 1 tab PO DAILY 03/01/23 03/01/23 Magnesium Glycinate, Mag Oxide 420 mg PO DAILY 03/01/23 03/01/23 [Magnesium Glycinate] Phenylephrine/Dm/Acetaminop/GG 30 ml PO BID PRN 03/01/23 03/01/23 [Daytime Severe Cold-Flu Liquid] S-Adenosylmethionine Sul Tosyl 1 tab PO DAILY 03/01/23 03/01/23 [Berry-E] Vit C/E/Zn/Coppr/Lutein/Zeaxan 1 tab PO DAILY 03/01/23 03/01/23 [Preservision Areds 2 Chew Tab] Vit D3/Vit K2/Calc Frutoborate 1 tab PO DAILY 03/01/23 03/01/23 [Move Free [id number]] Ferrous Gluconate [Fergon] 324 mg PO DAILY #30 tab 03/07/23 Fluticasone/Salmeterol [Advair Hfa 8 gm IH BID #1 ea 03/07/23 115-21 Mcg Inhaler] Pantoprazole [Protonix] 40 mg PO BID #40 tab 03/07/23 - PHYSICAL EXAM AT DISCHARGE General Appearance: positive: No acute distress, Alert Eyes Bilateral: positive: Normal inspection, EOMI, Other ENT: positive: No signs of dehydration, Other (Glasses, upper dentures.) Neck: positive: Nml inspection, No JVD Respiratory: positive: No respiratory distress, Rales (Fine rales at mid right lung field posteriorly, otherwise clear) Cardiovascular: positive: Regular rate & rhythm, No murmur (Distant heart sounds due to obesity and large breasts) Abdomen: positive: Non-tender, Nml bowel sounds, No distention Skin: positive: Warm, Dry Extremities: positive: Non-tender, No pedal edema Neurologic/Psychiatric: positive: Oriented x3, Motor nml - LABS Result Diagrams: 03/05/23 04:51 03/05/23 04:51 - DIAGNOSTIC IMAGING Diagnostic Imaging Results: Final report reviewed - SEPSIS Current Stage of Sepsis: Sepsis Possible source of Sepsis: Pulmonary Sepsis Criteria: Recorded Temperature greater than 38.3C or Less than 36C, Recorded Heart Rate greater than 90 bpm, Respiratory: Increasing oxygen requirements, WBC count greater than 12,000 or less than 4000 - FOLLOW UP Follow Up: See a provider at the walk-in clinic in 7 to 10 days for a hospital follow-up visit. Become established with a new primary care provider in April, is the plan. - TIME SPENT Time Spent in Discharge (Minutes): 30
[2023-03-07 08:21] VITALS: BP 99/54
[2023-03-07] MEDS: LORATADINE 10 MG TABLET PO SCH (09:07)
[2023-03-07] MEDS: PANTOPRAZOLE 40 MG TABLET PO SCH (09:07)
[2023-03-07] MEDS: guaiFENesin 600 MG TABLET PO SCH (09:07)
[2023-03-07] MEDS: MAGNESIUM OXIDE 400 MG TABLET PO SCH (09:07)
[2023-03-07] MEDS: LACTOBACILLUS RHAMNOSUS GG CAPSULE PO SCH (09:07)
[2023-03-07] MEDS: FERROUS GLUCONATE 324 MG TABLET PO SCH (09:08)
[2023-03-07] MEDS: cefTRIAXone 2 GM in SODIUM CHLORIDE 0.9% MINIBAG 100 ML IV SCH (09:08)
== END 2023-03-07 10:00 | disposition home or self-care (01) | DRG 871 ==
LOC: ED 03:06 → MS2 16:13
PROVIDERS: ADMIT Internal Medicine; ATTEND Internal Medicine
DX: A41.9 Sepsis, unspecified organism (principal); J18.9 Pneumonia, unspecified organism; K52.1 Toxic gastroenteritis and colitis; J81.1 Chronic pulmonary edema; R09.02 Hypoxemia; D50.9 Iron deficiency anemia, unspecified; K29.70 Gastritis, unspecified, without bleeding; J30.2 Other seasonal allergic rhinitis; R73.03 Prediabetes; R53.1 Weakness; R06.82 Tachypnea, not elsewhere classified; R00.0 Tachycardia, unspecified; R19.5 Other fecal abnormalities; T36.95XA Adverse effect of unspecified systemic antibiotic, initial encounter; Y92.230 Patient room in hospital as the place of occurrence of the external cause; Z87.891 Personal history of nicotine dependence
CPT/HCPCS: 36415; 71045; 71046; 80048; 80053; 82272; 82607; 82746; 83036; 83540; 83605; 83690; 83735; 83880; 84466; 85025; 87040; 87070; 87205; 87493; 87633; 87640; 94640; 94667; 94668; 96365; 96375; 99285; A9270; J1650; J1750; J7120

== ENCOUNTER 2023-06-22 09:05 | Outpatient (CLI) | payer BC ==
[2023-06-22 12:00] LABS: BASOPHILS % (AUTO) 0.5 %; EOSINOPHILS # (AUTO) 0.3 10^3/uL (0.0-0.7); EOSINOPHILS % (AUTO) 4.2 %; HCT - HEMATOCRIT 40.9 % (37.0-47.0); HGB - HEMOGLOBIN 13.5 g/dL (12.0-16.0); LYMPHOCYTES # (AUTO) 1.7 10^3/uL (1.5-3.5); LYMPHOCYTES % (AUTO) 22.5 %; MEAN CORPUSCULAR HEMOGLOBIN 28.8 pg (27.0-31.0); MEAN CORPUSCULAR VOLUME 87.2 fL (81.0-99.0); MEAN PLATELET VOLUME 10.3 fL (7.9-10.8); MONOCYTES # (AUTO) 0.8 10^3/uL (0.0-1.0); MONOCYTES % (AUTO) 10.2 %; NEUTROPHILS # (AUTO) 4.6 10^3/uL (1.5-6.6); NEUTROPHILS % (AUTO) 62.3 %; PLT - PLATELET COUNT 242 10^3/uL (130-450); RED BLOOD COUNT 4.69 10^6/uL (4.20-5.40); RED CELL DISTRIBUTION WIDTH 12.3 % (12.0-15.0); WHITE BLOOD COUNT 7.4 x10^3/uL (4.8-10.8)
[2023-06-22 12:07] LABS: ESTIMATED AVERAGE GLUCOSE 103 mg/dL (70-100); HEMOGLOBIN A1c% 5.2 % (4.27-6.07)
[2023-06-22 12:21] LABS: % IRON SATURATION 17 % (20-50); ALBUMIN 4.5 g/dL (3.2-5.5); ALBUMIN/GLOBULIN RATIO 1.5 (1.0-2.2); ALKALINE PHOSPHATASE 86 IU/L (42-121); ALT ALANINE AMINOTRANSFERASE 34 IU/L (10-60); AST ASPARTATE AMINOTRANSFERASE 27 IU/L (10-42); BILIRUBIN,TOTAL 0.6 mg/dL (0.2-1.0); BUN - BLOOD UREA NITROGEN 16 mg/dL (6-20); CALCIUM 9.9 mg/dL (8.5-10.3); CARBON DIOXIDE - CO2 26 mmol/L (21-32); CHLORIDE 105 mmol/L (101-111); CHOL/HDL RATIO 3.9 (<4.4); CHOLESTEROL 185 mg/dL; CREATININE 0.9 mg/dL (0.6-1.3); GFR - MDRD 67 (>89); GLUCOSE 103 mg/dL (74-104); HDL CHOLESTEROL 47 mg/dL; IRON 61 ug/dL (50-212); LDL CHOLESTEROL,CALCULATED 97 mg/dL; LDL/HDL RATIO 2.1 (<4.4); POTASSIUM 4.1 mmol/L (3.5-4.5); SODIUM 138 mmol/L (135-145); TOTAL IRON BINDING CAPACITY 357 ug/dL (250-450); TOTAL PROTEIN 7.6 g/dL (6.4-8.9); TRANSFERRIN 255 mg/dL (203-362); TRIGLYCERIDES 203 mg/dL (48-352); VLDL CHOLESTEROL 41 mg/dL
[2023-06-22 12:32] LABS: THYROID STIMULATING HORMONE 4.94 uIU/mL (0.34-5.60)
[2023-06-22 12:36] LABS: FERRITIN 236.9 ng/mL (11.0-306.8)
== END 2023-06-22 09:06 | disposition home or self-care (01) ==
LOC: LAB.N 09:05
PROVIDERS: ATTEND Physician Assistant
DX: D50.9 Iron deficiency anemia, unspecified (principal); Z13.9 Encounter for screening, unspecified; R73.03 Prediabetes
CPT/HCPCS: 36415; 80053; 80061; 82728; 83036; 83540; 83721; 84443; 84466; 85025

== ENCOUNTER 2023-08-19 11:22 | Day surgery (SDC) | payer BC ==
--- NOTE | 2023-08-19 11:29 | ANESTHESIA ---
Pre-Anesthesia VS, & Labs - Diagnosis screening, GERD, dysphagia - Procedure EGD, colonoscopy Height: 5 ft 2 in - NPO >8 hours Last Fluid Intake: am prep - Is Patient ?: No - Lab Results Lab results reviewed: Yes Home Medications and Allergies Home Medications: Ambulatory Orders Magnesium 1 cap PO DAILY 08/18/23 Mecobalamin [B12 Active] 1 tab PO DAILY 08/18/23 Omeprazole Magnesium [Prilosec] 1 cap PO DAILY 08/18/23 Magnesium 1 cap PO DAILY 08/18/23 Mecobalamin [B12 Active] 1 tab PO DAILY 08/18/23 Omeprazole Magnesium [Prilosec] 1 cap PO DAILY 08/18/23 Allergies/Adverse Reactions: Allergies Allergy/AdvReac Type Severity Reaction Status Date / Time No Known Drug Allergies Allergy Verified 08/18/23 13:22 Anes History & Medical History - Anesthetic History Anesthesia Complications: reports: No previous complications Family history of Anesthesia Complications: Denies Family history of Malignant Hyperthermia: Denies - Medical History Cardiovascular: reports: None, Other Pulmonary: reports: None, Pneumonia (recent hx, admitted to hospital) Gastrointestinal: reports: None Urinary: reports: None Neuro: reports: None Musculoskeletal: reports: None Endocrine/Autoimmune: reports: None Blood Disorders: reports: Anemia Skin: reports: None Smoking Status: Former smoker (Quit approximately 10 years ago) History of Cancer?: No - Surgical History Eyes Ears Nose Throat (EENT): reports: Other (eye surgery at 8 years old) Exam General: Alert, Oriented x3, Cooperative Dental: Loose/Frag, Poor dentition, Other (several missing) Mouth Openin Fingerbreadth Neck Mobility: Normal Mallampati classification: III Thyromental Distance: 4-6 cm Respiratory: Lungs clear, Normal breath sounds, No respiratory distress Cardiovascular: Regular rate Neurological: Normal speech Mental/Cognitive Status: Alert/Oriented X3, Normal for patient Cognitive Status: Within normal limits Plan Anesthesia Type: Total IV Consent for Procedure(s) Verified and Reviewed: Yes Code Status: Attempt Resuscitation ASA classification: 2-Mild systemic disease Is this case an emergency?: No
[2023-08-19] MEDS ORDERED: LACTATED RINGERS 1,000 ML IV ONE (12:13)
[2023-08-19] MEDS ORDERED: PROPOFOL 500 MG/50 ML 500 MG/50 ML VIAL ONE (12:44)
[2023-08-19] MEDS ORDERED: MIDAZOLAM 2 MG/2 ML VIAL ONE (12:47)
[2023-08-19] MEDS ORDERED: LIDOCAINE-MPF 2% 5 ML VIAL ONE (12:48)
--- NOTE | 2023-08-19 13:13 | HISTORY & PHYSICAL EXAMINATION ---
Chief Complaint - Chief Complaint Chief Complaint: here for upper and lower endoscopy History of Present Illness - History Obtained From Records Reviewed: yes History obtained from: pt Exam Limitations: none - History of Present Illness HPI Comment/Other: history heartburn and trouble swallowing. improved with prilosec. due for colon cancer screening History - Past Medical History Cardiovascular: reports: None, Other Respiratory: reports: None, Pneumonia (recent hx, admitted to hospital) Neuro: reports: None Endocrine/Autoimmune: reports: None GI: reports: None PHOTOENGRAVER: reports: None : reports: None HEENT: reports: None Psych: reports: None Musculoskeletal: reports: None Derm: reports: None MRSA Hx?: No - Past Surgical History HEENT: reports: Other (eye surgery at 8 years old) - Family & Social History Family History: Mother: Alive and Well, Renal Disease/Failure, Father: Alive and Well, [place] Family History Comment/Other: Mother's side has hypothyroidism. Living Situation: With family Meds/Allgy - Home Medications Home Medications: Ambulatory Orders Medication Instructions Recorded Confirmed Magnesium 1 cap PO DAILY 08/18/23 08/18/23 Mecobalamin [B12 Active] 1 tab PO DAILY 08/18/23 08/18/23 Omeprazole Magnesium [Prilosec] 1 cap PO DAILY 08/18/23 08/18/23 - Allergies Allergies/Adverse Reactions: Allergies Allergy/AdvReac Type Severity Reaction Status Date / Time No Known Drug Allergies Allergy Verified 08/18/23 13:22 Review of Systems - Other Findings Other Findings: 10 pt ros as above otherwise unremarkable Exam - Vital Signs Vital Signs: Vital Signs x48h Temp Pulse Resp BP Pulse Ox 08/19/23 12:02 36.3 C L 85 15 127/75 98 - Physical Exam General Appearance: positive: No acute distress, Alert Eyes Bilateral: positive: PERRL, EOMI ENT: positive: No signs of dehydration Neck: positive: No JVD, Trachea midline Respiratory: positive: No respiratory distress Cardiovascular: positive: Regular rate & rhythm Abdomen: positive: No distention Neurologic/Psychiatric: positive: Oriented x3 Conclusion/Plan - Problem List (1) Colon cancer screening Conclusion/Plan: plan colonoscopy for screening and egd for hx heartburn and trouble swallowing. parq held and consent obtained - Lab Results Lab results reviewed: Yes
[2023-08-19] MEDS ORDERED: PROPOFOL 200 MG/20 ML VIAL IVP ONE (13:35)
[2023-08-19] MEDS ORDERED: LACTATED RINGERS 300 ML IV ONE ×2 (13:55)
--- NOTE | 2023-08-19 14:20 | ANESTHESIA POST OP EVALUATION ---
Anesthesia Post Eval - Post Anesthesia Eval Vitals: Last Vital Signs Temp 36.1 C L 08/19/23 13:55 Pulse 88 08/19/23 13:55 Resp 18 08/19/23 13:55 BP 125/70 08/19/23 13:55 Pulse Ox 95 08/19/23 13:55 O2 Flow Rate CV Function Including HR & BP: Stable Pain Control: Satisfactory Nausea & Vomiting: Negative Mental Status: Baseline Respiratory Status: Airway Patent Hydration Status: Satisfactory Anesthesia Complications: None
[2023-08-19 14:31] VITALS: BP 101/58; O2SAT 98
== END 2023-08-19 11:23 | disposition home or self-care (01) ==
LOC: SDS 11:22
PROVIDERS: ATTEND Surgery
PROC: 0DJD8ZZ Inspection of Lower Intestinal Tract, Via Natural or Artificial Opening Endoscopic (ICD-10-PCS; 2023-08-19)
PROC: 0DB38ZX Excision of Lower Esophagus, Via Natural or Artificial Opening Endoscopic, Diagnostic (ICD-10-PCS; principal; 2023-08-19 13:00)
PROC: 0DB68ZX Excision of Stomach, Via Natural or Artificial Opening Endoscopic, Diagnostic (ICD-10-PCS; 2023-08-19 13:00)
DX: Z12.11 Encounter for screening for malignant neoplasm of colon (principal); K22.2 Esophageal obstruction; K21.9 Gastro-esophageal reflux disease without esophagitis; R13.10 Dysphagia, unspecified; R12 Heartburn; K29.50 Unspecified chronic gastritis without bleeding; K44.9 Diaphragmatic hernia without obstruction or gangrene; Z87.891 Personal history of nicotine dependence
CPT/HCPCS: 43239; 45378; J7120; 81025